=== PATIENT | female | born 1970 | race Caucasian/White ===

== ENCOUNTER 2018-03-07 13:26 | Outpatient (RCR) | payer MEDICAID, SELFPAY ==
--- NOTE | 2018-03-07 14:00 | IE_ITS ---
Date: March 07, 2018 Referring: RENETTA Ward M.D. Diagnosis: Mixed Incontinence P.T. Diagnosis: Pelvic floor dysfunction SUBJECTIVE: History of Present Illness: Patient is a 47 year old female who has a history of urinary incontinence. She reports initially began with just coughing and sneezing, and laughter post of her children. Her leakage can occur with or without activity. She reports at times she doesn't have an urge to go to the bathroom and will get up to get out of bed to get something she forgot and will leak across the floor. She will get up out of a chair at times and leak. She reports leakage with lifting, jumping, running. She does not report a change with her cycle. She had a uro dynamic test by Dr. 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 Her bladder habits including voiding frequency of 5+ per day, 1-2 at night, urge sensation-No. Sometimes no warning before urination occurs. Leakage varies from 2-3 a day to to 2-3 a month. Leakage is primary wet outwear when it does occur. She reports she can delay the need to toilet, however this varies, sometimes not at all, sometimes an hour. She never has trouble initiating a stream, does not strain to pass urine. A large amount is usually passed. Never feels her bladder is still full after urinating. Fluid intake is 4+ glasses a day, 2 of which might be caffeinated, primary drinks water. Does not have triggers that make her feel like she cannot wait to go to the toilet. After starting to urinate, she can partially deflect the urine stream, however this does very. Bowel habits: 1-2 per week. Reports no straining, however history of constipation. She currently is not sexually active at this time. She reports 2 pregnancies, vaginal deliveries, no complications. One in 1991. Declines pain with urination or sexual activity. Has been taught how to complete pelvic floor Kegel contractions via [employer], however has not completed consistently. Comorbidities: ADHD, anxiety, depression, TMJ, neck pain, breast cancer, post radiation treatment. Breast lumpectomy L, tubal ligation, cervical, medial branch blocks. Falls in the last year: __X__ No ____Yes - How many? ____ - (if over 2, balance SM needs to be completed) Reported hospitalizations in the last year - __X__ No ____ Yes - Dates of admission/reason: Medications: See her SHIRA Quality of Life: ____ Excellent __X__ Good __X__ Fair ____ Poor Previous Treatment: She has tried 3 different medications,none of which helped. OBJECTIVE: Posture: Mild forward head, rounded shoulder posture, however otherwise unremarkable. Has equal iliac crest. Observation: (behavior, atrophy, skin color, etc.) Appears in no distress. Is independent with all functional transfers and bed mobility. Gait: Non-antalgic, able to heel and toe walk. ROM: Lumbopelvic forward bend fingertips 1 to floor, extension hypermobile without dysfunction, sidebending to lateral joint line bilaterally, rotation equal and symmetrical. Demonstrates full AA LE ROM without discomfort. Strength: global LE strength grossly 5/5 and painfree. Neuro: Intact to light touch. Special Tests: Via EMG biofeedback was unable to be performed today due to lack of time. Will assess at later session. Treatment: IE: [id number] Patient Education: In the anatomy and physiology of the pelvic floor. We discussed at length bladder irritants, bladder fitness, proper toileting,fluid intake, nutrition to improve constipation. Instructed her in pelvic floor isolation performing functional activity and daily tasks. Recommended when she got out of bed or perform sit to stand transfer to isolate the pelvic floor before standing, also recommended schedule voiding. Discussed at length use of a stool or squatty potty for proper toileting position. Direct treatment time: 60 mins Total treatment time: 60 mins ASSESSMENT: Patient is a 47-year-old woman, referred for PT services with the diagnosis of mixed incontinence. Patient presents with clinical signs and symptoms consistent with this diagnosis, as demonstrated by the following impairment level findings: impaired motor function, muscle performance. Impairments are contributing to the following functional limitations: urinary leakage with daily activities. Patient is assessed as: __x__ Low 24728 ____ Moderate 01509 ____ High 04877 complexity, based on the following: History: (list): X See comorbidities and social history. Examination: (list): X See above for functional limitations and impairments. Presentation: X Stable . Evolving Unstable Decision-Making: X Low complexity Moderate complexity High complexity % Disability based on __X__ Patient requires skilled PT intervention to remediate the above functional limitations to return to: __X__ Premorbid level of function with improved continence _ STG: __6__ weeks. 1: Decrease urinary leakage by 50% or greater. 2: Delay voiding 10-15 minis 3: Increase muscle endurance to 8 seconds 4: Void frequency every 2-3 hours. LTG: __10__ weeks. 1: Perform all ADL work and recreational activities with 75% continence. 2: Independent in self management with strong HEP. PLAN: Patient to be seen 1x every other week with tapering visits as her symptoms improve promoting progression of strong independent self management program with re-assessment of pelvic floor isolation via EMG biofeedback at next session. Treatment to incorporate therapeutic exercise promoting functional stabilization of core musculature, proximal hip and pelvic floor. Progressing her to a strong independent home program with discharge when goals have been met. Thank you for this referral. Please do not hesitate to contact me with any questions or concerns regarding this patient's plan of care.
== END 2018-03-08 23:59 | disposition home or self-care (01) ==
LOC: PT 13:26
PROVIDERS: PCP Nurse Practitioner Family; Referring Provider Nurse Practitioner Gerontology; Visit Provider Nurse Practitioner Gerontology
DX: N36.44 Muscular disorders of urethra (principal); N39.46 Mixed incontinence
CPT/HCPCS: 97161

== ENCOUNTER 2018-03-25 00:33 | Outpatient (CLI) | payer MEDICAID, SELFPAY ==
--- NOTE | 2018-03-25 13:02 | DI.US_ITS ---
SYMPTOM/DIAGNOSIS: F/U TO PREV EXAM PELVIC ULTRASOUND: Comparison is made with 06/18/17. The uterus is retroverted. The uterus measures 6.8 cm. long by 3.4 cm. AP by 5.2 cm. transverse. The endometrial stripe is within normal limits at .4 cm. There is again seen a 1.2 by 1 by 1.2 cm., slightly hypoechoic mass in the uterine fundus most suggestive of a fibroid. This is unchanged compared to the prior examination. The right ovary measures 2.3 by 1.4 by 2.3 cm. There are small follicular cysts. There is normal blood flow. No evidence of torsion is seen. The previously noted cysts have resolved. The left ovary measures 2.6 by 1.4 by 2.3 cm. There is normal blood flow. Small follicular cysts are present. No evidence of torsion is seen. No free pelvic fluid or hydronephrosis is identified. IMPRESSION: Resolution of the right ovarian cystic lesions. Stable uterine fibroid.
== END 2018-03-25 00:53 ==
PROVIDERS: PCP Nurse Practitioner Family; Visit Provider Obstetrics & Gynecology Gynecology
DX: R93.8 Abnormal findings on diagnostic imaging of other specified body structures (principal)
CPT/HCPCS: 76830; 76856

== ENCOUNTER 2018-06-20 09:17 | Emergency (ER) | payer MEDICAID, SELFPAY ==
[2018-06-20 09:21] VITALS: BP 148/88; PULSE 99; RESP 20; TEMP 37.2; O2SAT 99
--- NOTE | 2018-06-20 09:33 | NUR.NOTE ---
patient placed on continous caridac monitor, # 18 right ac Nursing Note:
[2018-06-20] MEDS: LORazepam 1 MG TAB PO (09:59)
--- NOTE | 2018-06-20 09:59 | ED.GENADUL_ITS ---
Discharge Plan Disposition Patient Disposition: HOME Condition: Fair Discharge Details Chief Complaint: Palpitatns Clinical Impression: Anxiety, Atypical chest pain, Abdominal pain, chronic, epigastric Primary Care Provider: Susie Macdonald ED Provider: Jeanne An Home Meds and New Rx's Prescriptions: Continued prazosin 1 mg capsule 1 mg PO HS Qty: 30 RF: 0 bupropion HCl 300 MG tablet extended release 24 hr 450 mg PO DAILY Qty: 90 RF: 3 trazodone 50 MG tablet 50 mg PO HS PRNQty: 90 RF: 3 melatonin 3 mg tablet,disintegrating 9 mg PO HS Qty: 90 RF: 0 bupropion HCl [Wellbutrin XL] 150 mg tablet extended release 24 hr 150 mg PO DAILY Qty: 90 RF: 3 Vyvanse 30 mg Capsule RF: 0 Discharge Instructions Instructions: Chest Pain (ED), Anxiety (ED) Additional Instructions: Encourage hydration. Tylenol as needed for discomfort. Please follow up with primary care, appointment with Dr. Champagne at 7:45 AM Sunday the . Please contact psychiatrist as was advised to schedule follow up as soon as possible. Please leave zio patch in place, follow instructions as advised by respiratory therapy. Keep journal of symptoms to discuss further with primary care provider. If you develop chest pain, shortness of breath or other new/worsening symptoms please seek care urgently once again. Referrals: Susie Macdonald, PHARMACIST IN CHARGE OWNER [Primary Care Provider] - Discharge Data Discharge Date/Time-TO BE ENTERED AT DEPARTURE: 06/20/18 12:21 Medical Decision Making Patient is a 48-year-old female, accompanied by significant other, with multiple complaints. Please see HPI. Difficult to ascertain what exactly brought her to the emergency department today as many of these complaints have been going on for the past several months. She was seen by her primary care physician yesterday which appeared to be primarily for psychiatric reasons. She has had multiple medication changes recently. Is currently on trazodone, prazosin and Wellbutrin. Plan to obtain laboratory evaluation, EKG, chest x-ray. EKG was reviewed by Dr. Stone with no acute abnormality noted. Patient is in normal sinus rhythm with a rate of 103. Chest x-ray reviewed by radiology with no acute abnormality noted. Laboratory evaluation without any significant abnormality. Troponin <0.02. Given the length of symptoms, do not feel that this needs to be repeated. Vaginal exam was performed the patient was endorsing large amount of vaginal discharge is new over the recent months. On exam, I am not able to appreciate any large amount of vaginal discharge. She denies any new partners. Cervix appears unremarkable with no discomfort elicited during exam On further discussion with the patient, much of her frustration seems to stem from my primary care does not listen to me. I consulted with patient's primary care, Rebecca Macdonald NP. Discussed the patient's multitude of complaints. She reports that the patient had alluded to most of these complaints previously. She advised that the patient had only endorsed feelings of palpitations associated with anxiety attacks. Much of the patient's current complaints, including tightness in her neck, tightness in her chest, feelings of palpitations, abdominal discomfort, all of which sound chronic in nature, may be linked to the anxiety that she has been being followed by her primary care for. Rebecca advised that she would be happy to see the patient in the clinic for her multitude of complaints. However, I did discuss this with the patient and she is referring to see somebody else. I was able to obtain an appointment with another provider in the department Discussed patient's largest complaints. At this time, the palpitations seem to be what have her most worried. Patient will be placed on a Zio patch for continued monitoring. I asked that she keep a journal over the next few weeks that she may discuss this with her primary care. I was able to get her an appointment next week in follow-up. Advised she continue with her counseling. She was questioning referral to psychiatric care, something that Rebecca had also discussed with the patient. However, I did offer to set her up with [facility] and she reports that she has another person in mind in the community. She will contact them to schedule follow-up. Encouraged hydration. She may try Tylenol and ibuprofen as needed for discomfort. We discussed new/worsening symptoms and when to seek care urgently once again. All of her questions and concerns were addressed, she is in agreement with this plan. HPI General Mode of arrival: ambulatory . Date/Time Provider Initiated Documentation: 06/20/18 09:19 . Limitations to Documentation: no limitations . Information obtained by: patient and family . HPI Narrative: Patient is a 48 year old female with history of PTSD, OCD, RAJENDRA, depression, ADHD, TMJ dysfunction, invasive ductal carcinoma of breast, migraines. She is accompanied by her . She presents today with a multitude of complaints. States that she had increased migraines recently, is not currently endorsing a headache. States her last headache was Sunday. Endorses throat tightness and swelling which can wax and wane and stones over the past several weeks. Feels that when her throat tightness she has difficulty breathing. Is currently endorsing a sensation of difficulty breathing. Endorses anterior chest tightness but again, it has waxed the past several weeks but is never completely subsided. Reports that the chest tightness and throat tightness seemed to coincide when the increase in severity. States that she has had this recently while driving in the car and has attacks that last a few seconds and then seemed insidiously resolved. These do not seem to be linked with exertion. Patient is also endorsing chronic epigastric pain that she can can wax and wane. Reports she has had EGD for this and has not been able to find the source. Patient self referred to GI, has not discussed this recently with her primary care physician. States that she has had increased vaginal discharge. Reports that she has occasional foul odor. Denies any dyspareunia. Denies any dysuria or change in urinary habits. States she has had constipation and has had issues with this for quite some time Patient also endorses diffuse tingling that has been bothersome for quite some time again, waxing and waning. Feels that she has been out of it. Reports she has difficulty with her speech pattern and has been frequently forgetting what she is saying in the middle of sentences. Denies any recent fevers or chills. No signs of upper respiratory illness. Patient reports that she has had a large amount of stress recently. Has been seen by her primary care recently. Reports she had multiple medication changes. Related Data Home Medications Medication Instructions Recorded Confirmed bupropion HCl 450 mg PO DAILY #90 tab-cap 05/16/17 06/20/18 trazodone 50 mg PO HS PRN #90 tab-cap 06/13/17 06/19/18 melatonin 3 mg disintegrating 9 mg PO HS #90 tab 03/12/18 06/20/18 tablet bupropion HCl XL 150 mg 24 hr 150 mg PO DAILY #90 tab-cap 05/09/18 06/19/18 tablet, extended release prazosin 1 mg capsule 1 mg PO HS #30 tab-cap 06/19/18 06/19/18 Vyvanse 06/20/18 Previous Rx's Medication Instructions Recorded bupropion HCl 450 mg PO DAILY #90 tab-cap 05/16/17 melatonin 3 mg disintegrating 9 mg PO HS #90 tab 03/12/18 tablet bupropion HCl XL 150 mg 24 hr 150 mg PO DAILY #90 tab-cap 05/09/18 tablet, extended release prazosin 1 mg capsule 1 mg PO HS #30 tab-cap 06/19/18 Allergies Allergy/AdvReac Type Severity Reaction Status Date / Time Sulfa (Sulfonamide Allergy Severe SOB,rash Verified 06/20/18 09:26 Antibiotics) aspirin AdvReac Intermediate Rash Verified 06/20/18 09:26 General Stated Complaint: Palpitatns DILCIA: 2 Review of Systems Constitutional Reports as per HPI, Denies chills, Reports fatigue, Denies fever(s), Reports headache(s) and Denies poor appetite Eyes Denies change in vision ENT Reports as per HPI, Denies change in voice, Reports headache(s), Denies hoars eness, Reports throat swelling and Denies tongue swelling Cardiovascular Reports as per HPI, Reports chest pain, Reports chest pain at rest, Reports diaphoresis, Denies syncope, Reports rapid heart rate, Denies pedal edema, Denies leg edema, Reports dyspnea, Denies dyspnea on exertion and Denies orthopnea Respiratory Reports dyspnea, Denies dyspnea on exertion and Denies wheezing Gastrointestinal Reports as per HPI, Denies abdominal pain, Denies diarrhea, Denies nausea and Denies vomiting Musculoskeletal Reports as per HPI and Denies back pain Integumentary/Breasts Reports as per HPI and Denies rash Neurologic Denies syncope and Reports headache(s) Endocrine Reports fatigue Allergic/Immunologic Reports throat swelling, Denies tongue swelling and Denies wheezing PFSH PTSD (post-traumatic stress disorder) (Chronic 06/29/17) Obsessive compulsive disorder (Chronic 06/29/17) Mixed incontinence (Chronic 02/23/14) Invasive ductal carcinoma of breast, stage 1 (Inactive) Insomnia (Chronic 05/24/16) RAJENDRA (generalized anxiety disorder) (Chronic 06/29/17) Depression (Chronic 04/19/16) Cervical neck pain with evidence of disc disease (Chronic) Attention deficit hyperactivity disorder (ADHD) (Chronic 06/29/17) Anxiety (Chronic 04/19/16) Abnormal Pap smear of cervix (Chronic 08/26/14) Abnormal Pap in her teens with Cryo / 2012 Pap + HPV Cervical pain (neck) Past history anemia / NL for years Past history of Migraine without Auro / none for years Past history of depression following breast cancer diagno... Past history of heart murmur with Rx antibiotic/ not for ... Stage 1L breast cancer 2009 Breast, Lumpectomy Colonoscopy - IV Sedation (~2009) Colonoscopy - IV Sedation (04/22/15) EGD (08/17/16) Ligation of fallopian tube cervical medial branch blocks (06/02/15) Social History adopted: No foster care: No number of children: 2 frequency: daily duration: 15-30 minutes/day Smoking/Tobacco Use Status: Former Tobacco Use alcohol intake: former substance use type: does not use seatbelt use: always working smoke detector in home: Yes carbon monox detector in home: Yes firearms in home: No Exam Const General: cooperative, healthy appearing, comfortable, no acute distress and well developed Nutritional Appearance: average body habitus and well nourished Orientation: alert, awake and oriented x3 HENMT Head: normal to inspection Ears: hearing grossly normal bilaterally Mouth: moist mucous membranes Chest Chest: normal inspection of the chest, normal palpation of entire chest wall and no crepitus Resp Effort & Inspection: normal respiratory effort, able to speak in complete sentences and no respiratory distress Auscultation: clear to auscultation bilaterally, no rales, no rhonchi and no wheezes Cardio Rate: regular rate Rhythm: regular rhythm Heart Sounds: S1 normal and S2 normal GI Inspection: normal to inspection, no edema and non-distended Palpation: soft, no hepatosplenomegaly, not firm, no guarding, not rigid and nontender Auscultation: normal bowel sounds General: bimanual renal exam normal bilaterally External Female Exam: external appearance normal, normal appearance of the uret hra, no erythema, no tenderness externally, no external swelling, no ecchymosis and No urethral discharge Speculum Exam - Vagina: normal appearance of the vagina, normal vaginal discharge, vagina not atrophic and No vaginal bleeding Speculum Exam - Cervix: normal appearance of the cervix, No cervical os open and normal vervical discharge Bimanual Exam- Vagina & Uterus: normal bimanual exam and normal vaginal palpation OB/External & Speculum: No cervical os open and No vaginal bleeding Back/Spine/Pelvis Back: no CVA tenderness Thoracic/Lumbar Spine: thoracic and lumbar spine normal to inspection Skin General skin exam: no rashes or lesions noted Trauma: no lacerations or abrasions Neuro General: alert, awake and oriented x3 Cognition: normal cognition Speech: speech normal Gait: normal gait Extrem General: normal to inspection, normal capillary refill, no pedal edema, no calf tenderness and normal gait Psych Appearance: grossly normal and well kempt Mental Status: mental status grossly normal Speech and Movement: speech and movement normal Course Vital Signs Temperature 37.2 C 06/20/18 09:21 Pulse 99 H 06/20/18 09:21 Respiratory Rate 20 06/20/18 09:21 Blood Pressure 148/88 H 06/20/18 09:21 Pulse Oximetry 99 06/20/18 09:21 Temperature 37.2 C 06/20/18 09:21 Temperature Source Skin 06/20/18 09:21 Pulse 99 H 06/20/18 09:21 Respiratory Rate 20 06/20/18 09:21 Respiratory Effort 06/20/18 09:24 Blood Pressure 148/88 H 06/20/18 09:21 Pulse Oximetry 99 06/20/18 09:21 Oxygen Delivery Method Room Air 06/20/18 09:21 Oxygen Flow Rate 0 06/20/18 09:21 Pain Level 0 06/20/18 09:21 Comment 06/20/18 09:21
[2018-06-20] MEDS: Normal Saline 1,000 ML 125 ML IV (10:00)
[2018-06-20 10:05] LABS: Abs Immature Grans 0.01 k/cumm (0.0-0.09); Absolute Basophil Count 0.03 k/cumm (0.0-0.2); Absolute Lymphocyte Count 1.89 k/cumm (1.2-3.4); Absolute Neutrophil Count 3.17 k/cumm (1.2-6.7); Basophils % 0.5; Eosinophils % 1.7; HCT 43.9 % (36.0-46.0); Immature Grans % 0.2; Lymphocytes % 32.6; Mean Corp. HGB Concentration 31.9 g/dL (32.0-36.0); Mean Corpuscular Hemoglobin 29.3 pg (27.0-33.0); Mean Corpuscular Volume 91.8 fL (80-95); Monocytes % 10.3; Neutrophils % 54.7; Platelet Count 279 x1000/uL (130-400); RBC 4.78 m/cumm (4.00-5.20); RBC Distribution Width 13.1 % (11.7-14.6)
[2018-06-20 10:06] VITALS: BP 135/73; RESP 16; O2SAT 100
[2018-06-20 10:15] LABS: PTT Activated 22.1 sec (21.0-31.4); Prothrombin Time 10.2 sec (9.3-10.8)
[2018-06-20 10:21] LABS: ALT 23 U/L (12-78); AST 15 U/L (15-37); Albumin 3.8 g/dL (3.4-5.0); Alkaline Phosphatase 74 U/L (46-116); Anion Gap 8.7 mmol/L (3-11); BUN 13 mg/dL (7-18); Bilirubin, Total 0.3 mg/dL (0.2-1.0); CO2 27.3 mmol/L (21.0-32.0); Calcium 8.8 mg/dL (8.5-10.1); Chloride 102 mmol/L (98-107); Estimated GFR 59.43 (mL/min/1.73m2); Glucose 100 mg/dL (70-100); Magnesium 1.9 mg/dL (1.8-2.4); Potassium 3.8 mmol/L (3.5-5.1); Sodium 138 mmol/L (136-145); TSH (W/Ref FT4) 2.48 uIU/mL (0.358-3.74); Total Protein 7.2 g/dL (6.4-8.2)
[2018-06-20 10:39] LABS: Troponin I < 0.02 ng/mL (0.00-0.06)
--- NOTE | 2018-06-20 10:47 | DI.RAD_ITS ---
SYMPTOM/DIAGNOSIS: CP, SOB CHEST: PA and lateral. No priors for comparison. The heart is normal in size. The lungs are clear. The mediastinal structures and pleura appear intact. CONCLUSION: Normal chest.
--- NOTE | 2018-06-20 11:09 | NUR.NOTE ---
Nursing Note:Pt over to xray via w/c. urine specimen sent to lab, HCG POC negative
[2018-06-20 11:24] LABS: *AMPHETAMINES SCREEN URINE Negative (Negative); *BARBITURATES SCREEN URINE Negative (Negative); *BENZODIAZEPINES SCREEN URINE Negative (Negative); Cannabinoids THC Negative (Negative); Cocaine Screen,Urine Negative (Negative); METHADONE URINE SCREEN Negative (Negative); OPIATES URINE SCREEN Negative (Negative)
[2018-06-20 11:27] LABS: Bilirubin Negative (Negative); Blood Negative (Negative); Clarity Clear; Glucose Negative (Negative); Ketones Negative (Negative); Leukocyte Esterase Negative (Negative); Nitrite Negative (Negative); Specific Gravity 1.015 (1.005-1.025); Urobilinogen 0.2 EU/dL (Up TO 0.2); pH 8.5 (5-8)
[2018-06-20 11:29] LABS: Tricyclic Antidepressants Negative (Negative)
--- NOTE | 2018-06-20 11:41 | NUR.NOTE ---
Nursing Note: Assisted with pelvic exam with Jeanne RUBIN. Patient tolerated well.
[2018-06-20 12:06] VITALS: BP 119/66; PULSE 78; RESP 18; O2SAT 97
[2018-06-20 12:51] VITALS: BP 106/61; PULSE 78; RESP 16; TEMP 37.1; O2SAT 99
--- NOTE | 2018-07-12 10:47 | ZIOP_ITS ---
DATE OF DICTATION: July 12, 2018 INDICATION: Palpitations. ANALYSIS TIME: 13 days and 1 hour Predominant underlying rhythm is sinus rhythm. Average heart rate 94 bpm. Minimum heart rate 67 bpm. Maximum heart rate 152 bpm. Rare isolated ventricular ectopy. No non-sustained VT. Rare isolated atrial ectopy. No SVT or atrial fibrillation. No significant pauses or bradyarrhythmias. Three diary entries with symptoms including fluttering/racing/pounding/throat tightness and shoulder discomfort all correspond to sinus rhythm. 25 patient-triggered events predominantly correspond to sinus rhythm with one corresponding to sinus rhythm with PVC's.
== END 2018-06-20 12:21 | disposition home or self-care (01) ==
PROVIDERS: Emergency Provider Physician Assistant; PCP Nurse Practitioner Family
DX: F41.8 Other specified anxiety disorders (principal); R07.89 Other chest pain; R10.13 Epigastric pain
CPT/HCPCS: 36415; 80053; 80307; 81025; 93005; 93225; 99285; 71046; 81003; 83735; 84443; 84484; 85025; 85610; 85730; 93010

== ENCOUNTER 2018-06-27 16:01 | Outpatient (CLI) | payer MEDICAID, SELFPAY ==
--- NOTE | 2018-06-27 15:00 | DI.CT_ITS ---
SYMPTOM/DIAGNOSIS: CP, SOB, R07.9, R06.02 CTA CHEST: CT angiography was performed with multi slice acquisition and multi planar and 3D reconstruction. This study was carried out with an intravenous injection of 97.1 cc Omnipaque 350. The pulmonary arteries are normal. There is no evidence of PE. The evaluation of the proximal ascending thoracic aorta is somewhat limited due to patient motion. No aneurysm is seen. Note is made of a 4 mm right pulmonary nodule. There are scattered areas of atelectasis and/or scarring. Also identified is a nonspecific 6 mm pulmonary nodule. There is no evidence of a pleural effusion or pneumothorax. There is no pericardial effusion. The heart is not enlarged. There is gas in the esophagus which could be seen with reflux. The common bile duct is mildly dilated at 7.8 mm This finding should be correlated with appropriate laboratory tests. There is some prominence of the left adrenal gland. No discrete adrenal mass is apparent. There is no evidence of mediastinal adenopathy. The bony structures are unremarkable save for mild DJD. Surgical clips are noted in the left axilla. SUMMARY: No evidence of PE. The common duct caliber of 7.8 mm is recorded and is somewhat dilated (top limits of normal is 6 to 7 mm). Correlation with the patient's clinical status and appropriate laboratory tests. If there is further clinical question in this regard then further assessment with ultrasound and/or a radionuclide hepatobiliary scan could be of value. Nonspecific small pulmonary nodules are demonstrated. Comparison of this examination with previous images is recommended. Incidentally noted: I do not see a previous chest CT for this patient. Repeat chest CT in one year. If there is any evidence of an intra-abdominal or pelvic malignancy in this patient then further work up with abdominal CT.
[2018-06-27] MEDS: Omnipaque 350 MG/ML 100 ML BTL IJ (16:14)
--- NOTE | 2018-06-27 16:43 | DI.VRAD_ITS ---
EXAM: CT Angiography Chest With Contrast EXAM DATE/TIME: 06/27/2018 2:56 PM CLINICAL HISTORY: 48 years old, female; Pain; Chest pain; On breathing; Additional info: SOB, HX breast cancer TECHNIQUE: Axial computed tomographic angiography images of the chest with intravenous contrast using CT angiography protocol. Coronal and sagittal reformatted images were created and reviewed. MIP reconstructed images were created and reviewed. COMPARISON: CR XR CHEST 2V PA LATERAL 06/20/2018 11:08 AM FINDINGS: Pulmonary arteries: No pulmonary embolism identified. Aorta: Evaluation of the proximal ascending thoracic aorta is limited secondary to motion. No aneurysm identified. Lungs: Series 4 image 51 demonstrates a nonspecific 4 mm right pulmonary nodule. There are scattered areas of atelectasis or scarring. Series 4 image 17 demonstrates a nonspecific 6 mm right pulmonary nodule. Pleural space: No pleural effusion. No pneumothorax. Heart: No pericardial effusion. Mediastinum: Gas in the esophagus which can be seen with reflux. Gallbladder and bile ducts: The common bile duct is measuring mildly dilated at 7.8 mm. Correlation with lab values suggested. Adrenals: Bulky appearance to the left adrenal gland. Lymph nodes: No mediastinal lymph node enlargement. Bones/joints: Mild skeletal degenerative changes. Soft tissues: Surgical clips are noted in the left axilla.. IMPRESSION: 1. No pulmonary embolism identified. 2. The common bile duct is measuring mildly dilated at 7.8 mm (normal is less than 6 mm). Correlation with lab values suggested. An obstructive process could be a source of the patient's pain. If indicated, ultrasound could be considered. 3. Nonspecific subcentimeter pulmonary nodules. Comparison with older imaging studies, if available, would be beneficial. Followup suggested. Given the patient's history of underlying malignancy, disease involvement is not excluded. Dictated and Authenticated by: Hansa Clark MD. Ordering:FLY Dunn MD
== END 2018-06-27 16:21 ==
PROVIDERS: PCP Nurse Practitioner Family; Visit Provider Nurse Practitioner
DX: R07.9 Chest pain, unspecified (principal); R06.02 Shortness of breath; R91.1 Solitary pulmonary nodule; K21.9 Gastro-esophageal reflux disease without esophagitis; K83.8 Other specified diseases of biliary tract
CPT/HCPCS: 71275; J3490

== ENCOUNTER 2018-07-11 01:20 | Outpatient (CLI) | payer MEDICAID, SELFPAY ==
--- NOTE | 2018-07-11 10:40 | MERGE_ITS ---
*[facility]* *[facility]* [address] [place] [address] Date of study: 07/11/2018 Transthoracic Echocardiography M-mode, complete 2D, complete spectral Doppler, and color Doppler *STUDY CONCLUSIONS* Summary: 1. Left ventricle: The cavity size was normal. Systolic function was normal. The estimated ejection fraction was 60-65%. Diastolic parameters were normal. There was no evidence of elevated ventricular filling pressure by Doppler parameters. 2. Mitral valve: There was mild regurgitation. 3. Right ventricle: The cavity size was normal. Wall thickness was normal. Systolic function was normal. 4. Atrial septum: No defect or patent foramen ovale was identified. 5. Pulmonary arteries: Pulmonary systolic pressure was in the range of 20mm Hg to 30mm Hg. 6. Inferior vena cava: The vessel was patent and normal in size. The respirophasic diameter changes were in the normal range (greater than or equal to 50%), consistent with normal central venous pressure. *PATIENT PRESENTATION* Height: 165.1cm ((65in) ) S/D Pressure: 126 / 67 Weight: 63.5kg ((139.7lb) ) BSA: 1.71m^2 Test start time: 10:50 AM. Test stop time: 11:50 AM. PERFORMING [facility] TRAFFIC SAFETY ADMINISTRATOR RT Simona (R)(CT), RDCS CONSULTING Susie Macdonald Joyce A REFERRING Vitale, Joyce A *PROCEDURE DATA* Procedure information: The patient was identified by two identifiers. This study was interpreted by [facility]. Pertinent images and digital data are archived for permanent storage and are available for subsequent review. No prior study was available for comparison. Study status: Routine. Transthoracic echocardiography. M-mode, complete 2D, complete spectral Doppler, and color Doppler. A Transthoracic Echocardiogram was performed. Scanning was performed from the parasternal, apical, subcostal, and suprasternal notch acoustic windows. Images were obtained using an [id number] cardiac ultrasound machine. Image quality was good. Study completion: The patient tolerated the procedure well. History: PMH: Chest pain, SOB. Family hx of ischemic heart disease. *CARDIAC ANATOMY* Left ventricle: The cavity size was normal. Systolic function was normal. The estimated ejection fraction was 60-65%. The tissue Doppler parameters were normal. Diastolic parameters were normal. There was no evidence of elevated ventricular filling pressure by Doppler parameters. Aortic valve: Trileaflet. Doppler: There was no stenosis. There was no regurgitation. VTI ratio of LVOT to aortic valve: 0.89. Valve area (VTI): 2.7cm^2. Indexed valve area (VTI): 1.6cm^2/m^2. Peak velocity ratio of LVOT to aortic valve: 0.82. Valve area (Vmax): 2.5cm^2. Indexed valve area (Vmax): 1.5cm^2/m^2. Mean velocity ratio of LVOT to aortic valve: 0.8. Valve area (Vmean): 2.5cm^2. Indexed valve area (Vmean): 1.4cm^2/m^2. Mean gradient (S): 3.5mm Hg. Peak gradient (S): 5.3mm Hg. Aorta: Aortic root: The aortic root was normal in size. Ascending aorta: The ascending aorta was normal in size. Mitral valve: Doppler: There was no evidence for stenosis. There was mild regurgitation. Valve area by pressure half-time: 3.4cm^2. Indexed valve area by pressure half-time: 2cm^2/m^2. Left atrium: The atrium was normal in size. Atrial septum: No defect or patent foramen ovale was identified. Right ventricle: The cavity size was normal. Wall thickness was normal. Systolic function was normal. Pulmonic valve: Doppler: There was no evidence for stenosis. There was trivial regurgitation. Peak gradient (S): 3.8mm Hg. Tricuspid valve: Doppler: There was mild regurgitation. Pulmonary artery: Poorly visualized. Pulmonary systolic pressure was in the range of 20mm Hg to 30mm Hg. Right atrium: The atrium was normal in size. Pericardium: There was no pericardial effusion. Systemic veins: Inferior vena cava: Well visualized. The vessel was patent and normal in size. The respirophasic diameter changes were in the normal range (greater than or equal to 50%), consistent with normal central venous pressure. Baseline ECG: Normal sinus rhythm. Measurements Left ventricle Value Reference LV ID, ED, PLAX 4.8 cm 3.5 - 6.0 LV ID, ES, PLAX 3.2 cm 2.1 - 4.0 LV PW thickness, ED, PLAX 0.9 cm LV end-diastolic volume, 1-p A2C 83 ml LV ejection fraction, 1-p A2C 60 % LV end-diastolic volume, 1-p A4C 72 ml LV ejection fraction, 1-p A4C 59 % LV e', lateral 0.138 m/sec LV E/e', lateral 4 LV e', medial 0.085 m/sec LV E/e', medial 7 LV e', average 0.112 m/sec LV E/e', average 5 Ventricular septum Value Reference IVS thickness, ED, PLAX 0.8 cm LVOT Value Reference LVOT ID, A-P 2.0 cm LVOT area 3.1 cm^2 LVOT peak velocity, S 0.94 m/sec LVOT mean velocity, S 0.73 m/sec LVOT VTI, S 21.3 cm LVOT peak gradient, S 3.6 mm Hg LVOT mean gradient, S 2.3 mm Hg Stroke volume (SV), LVOT DP 66 ml Stroke index (SV/bsa), LVOT DP 38 ml/m^2 Aortic valve Value Reference Aortic valve peak velocity, S 1.1 m/sec Aortic valve mean velocity, S 0.91 m/sec Aortic valve VTI, S 24.0 cm Aortic mean gradient, S 3.5 mm Hg Aortic peak gradient, S 5.3 mm Hg VTI ratio, LVOT/AV 0.89 Aortic valve area, VTI 2.7 cm^2 Velocity ratio, peak, LVOT/AV 0.82 Aortic valve area, peak velocity 2.5 cm^2 Velocity ratio, mean, LVOT/AV 0.8 Aortic valve area, mean velocity 2.5 cm^2 Aortic valve area/bsa, mean velocity 1.4 cm^2/m^2 Aorta Value Reference Aortic root ID, ED 2.7 cm Ascending aorta ID, A-P, S 2.6 cm Left atrium Value Reference LA ID, A-P, ES 2.7 cm LA ID/bsa, A-P 1.6 cm/m^2 <=2.2 LA area, ES, A4C 15.2 cm^2 8.8 - 23.4 LA area, ES, A2C 17 cm^2 LA volume/bsa, ES, 1-p A4C 24 ml/m^2 LA volume, ES, 2-p 42 ml LA volume/bsa, ES, 2-p 24 ml/m^2 LA/aortic root ratio 1.02 Mitral valve Value Reference Mitral E-wave peak velocity 0.57 m/sec Mitral A-wave peak velocity 0.47 m/sec Mitral deceleration time 225 ms 150 - 230 Mitral pressure half-time 65 ms Mitral E/A ratio, peak 1.22 Mitral valve area, PHT, DP 3.4 cm^2 Pulmonary veins Value Reference Pulmonary vein peak velocity, S 0.59 m/sec Pulmonary vein peak velocity, D 0.34 m/sec Pulmonary vein velocity ratio, peak, 1.74 S/D Tricuspid valve Value Reference Tricuspid regurg peak velocity 2.3 m/sec Tricuspid peak RV-RA gradient 21.7 mm Hg Right atrium Value Reference RA area, ES, A4C 11.4 cm^2 8.3 - 19.5 Pulmonic valve Value Reference Pulmonic peak gradient, S 3.8 mm Hg Legend: (L) and (H) alina values outside specified reference range. I have personally reviewed the images and have reviewed and edited the reported findings. Electronically signed by Jm Macdonald MD 07/11/2018 13:50
== END 2018-07-11 01:40 ==
PROVIDERS: PCP Nurse Practitioner Family; Visit Provider Nurse Practitioner
DX: R07.9 Chest pain, unspecified (principal); R06.02 Shortness of breath; I34.0 Nonrheumatic mitral (valve) insufficiency; Z82.49 Family history of ischemic heart disease and other diseases of the circulatory system
CPT/HCPCS: 93306

== ENCOUNTER 2018-07-17 00:27 | Outpatient (CLI) | payer MEDICAID, SELFPAY ==
--- NOTE | 2018-07-17 09:45 | DI.US_ITS ---
SYMPTOM/DIAGNOSIS: THROAT SWELLING, R22.1, INTERMITTENT SENSATION OF THROAT FULLNESS, ? MASS OR NODULE, H/O BREAST CA, COMMON BILE DUCT DILATATION, K83.8, ? MASS OR STRICTURE ABDOMEN ULTRASOUND: Routine examination was performed. The abdominal aorta and IVC are unremarkable. The liver is unremarkable. No stones, sludge, gallbladder wall thickening or pericholecystic fluid is seen. The common duct is within normal limits. The tail of the pancreas could not be visualized but the remainder of the pancreas is unremarkable. The spleen and kidneys have a normal appearance. IMPRESSION: No acute abnormality. No evidence of a hepatic mass, gallstone or biliary ductal dilatation. NECK ULTRASOUND: Routine examination was performed. The right lobe of the thyroid gland measures 4.7 by 0.9 by 1.1 cm. The left lobe measures 4.1 by 0.9 by 1 cm. The isthmus is within normal limits. The thyroid gland is normal in echogenicity. No thyroid mass is seen sonographically. Sonographic evaluation of the right and left neck were also performed. No suspicious cystic or solid masses are identified. IMPRESSION: Normal sonographic appearance of the neck and thyroid gland. If there is continued concern, a CT scan with contrast of the neck may be considered for further evaluation.
== END 2018-07-17 00:47 ==
PROVIDERS: PCP Nurse Practitioner Family; Visit Provider Nurse Practitioner Family
DX: R22.1 Localized swelling, mass and lump, neck (principal); K83.8 Other specified diseases of biliary tract; Z85.3 Personal history of malignant neoplasm of breast
CPT/HCPCS: 76536; 76700

== ENCOUNTER 2018-07-18 00:10 | Outpatient (CLI) | payer MEDICAID, SELFPAY ==
--- NOTE | 2018-07-18 08:30 | ETT_ITS ---
*[facility]* *[facility]* [address] [place] [address] Stress Electrocardiography Filippo protocol Date of study: 07/18/2018 *PATIENT PRESENTATION* Height: 165.1cm (65in) Blood Pressure: Weight: 63.2kg (139lb) BSA: 1.71m^2 Referring physician: Mona Varghese Ordering physician: Mona Varghese Impressions: Normal study after maximal exercise. Summary: 1. Stress: The target heart rate was achieved. Indication: R07.9. History: REASON FOR TESTING: PATIENT HAS HAD INTERMITTENT SHARP CHEST PAINS OVER THE LAST MONTH. ALSO REPORTS PAIN BETWEEN SHOULDER BLADES AND NECK TIGHTNESS. TODAY SHE REPORTS PAIN 5/10 BETWEEN HER SHOULDER BLADES RADIATING TO RIGHT SHOULDER, BUT DENIES CHEST PAIN. PAST MEDICAL HISTORY: PAST HISTORY OF HEART MURMUR WITH RX ANTIBIOTICS, ANXIETY, DEPRESSION, PTSD, RAJENDRA, ADHD, OBSESSIVE COMPULSIVE DISORDER. FAMILY HISTORY: MOTHER-HEART ATTACK, FATHER-HEART ATTACK, CHF AND ATRIAL FIBRILLATION. SMOKING STATUS: 10 YEAR 1/2 PPD. QUIT MANY YEARS AGO. EXERCISE ROUTINE: DAILY ADL'S Risk factors: Family history of coronary artery disease. Cholesterol: 128mg/dl. HDL: 51mg/dl. LDL: 61mg/dl. Triglycerides: 108mg/dl. ALLERGIES: ASPIRIN AND SULFA. MEDICATIONS: TRAZODONE 50 MG HS PRN, PRAZOSIN 1 MG HS, MELATONIN 9 MG HS, BUPROPION HCI XL 450 MG DAILY. Protocol: Filippo protocol. Baseline ECG: SINUS RHYTHM. HEART RATE 77. Stress protocol: + +---+ + !Stage !HR !BP (mmHg) ! + +---+ + !Baseline supine !77 !110/72 (85) ! + +---+ + !Baseline standing !100!110/74 (86) ! + +---+ + !Stage I; 1.7mph, 10degrees; 3 min !124!120/76 (91) ! + +---+ + !Stage II; 2.5mph, 12degrees; 3 min !146!148/76 (100)! + +---+ + !Stage III; 3.4mph, 14degrees; 3 min!164!178/74 (109)! + +---+ + !Recovery; 1 min !162!180/78 (112)! + +---+ + !Recovery; 3 min !115!168/70 (103)! + +---+ + !Recovery; 6 min !117!138/70 (93) ! + +---+ + !Recovery; 9 min !113!122/70 (87) ! + +---+ + !Recovery; 12 min !108!118/62 (81) ! + +---+ + * Stress results: STRESS TEST ENDED IN 7 MINUTES 44 SECONDS DUE TO FATIGUE. NORMAL HEART RATE AND BLOOD PRESSURE TO EXERCISE. MAX HR = 169 % OF TARGET = 97 RARE PVC'S APPROXIMATE MET'S ACHIEVED = 7.74 CHEST PAIN MID STERNAL 4 OUT OF 10 ACHING AND SHARP REPORTED AT 6 MINUTES RECOVERY TIME. CHEST PAIN SUBSIDED BY [address] MIN[address] RECOVERY. NO SIGNIFICANT ST SEGMENT CHANGES. FUNCTIONAL CAPACITY: AVERAGE CAPACITY Maximal heart rate during stress was 169bpm (98% of maximal predicted heart rate). The maximal predicted heart rate was 173bpm. The target heart rate was achieved. The rate-pressure product for the peak heart rate and blood pressure was 66871fl Hg/min. Study data: Colt Arroyo MD supervised and was readily available during the procedure. This study was interpreted by [facility]. Study status: Routine. Consent: The risks, benefits, and alternatives to the procedure were explained to the patient and informed consent was obtained. Procedure: Initial setup. A baseline ECG was recorded. Surface ECG leads and manual cuff blood pressure measurements were monitored. Heart sounds: Normal. Lung sounds: Normal. Treadmill exercise testing was performed using the Filippo protocol. Study completion: The patient tolerated the procedure well and was discharged from the lab. Discharge: The patient left the laboratory in stable condition. Birthdate: Patient birthdate: 1970. Sex: Gender: female. Study date: Study date: 07/18/2018. Study time: 08:30 AM. Signature Documentation: The Stress ECG portion of this study was interpreted by Colt Arroyo MD. Electronically signed by Colt Arroyo 07/18/2018 12:02
== END 2018-07-18 00:30 ==
PROVIDERS: PCP Nurse Practitioner Family; Visit Provider Nurse Practitioner
DX: R07.9 Chest pain, unspecified (principal); R06.02 Shortness of breath; R01.1 Cardiac murmur, unspecified; F41.8 Other specified anxiety disorders; Z82.49 Family history of ischemic heart disease and other diseases of the circulatory system
CPT/HCPCS: 93017

== ENCOUNTER 2018-10-16 15:55 | Outpatient (REF) | payer MEDICAID, SELFPAY ==
[2018-10-16 20:04] LABS: Abs Immature Grans 0.01 k/cumm (0.0-0.09); Absolute Basophil Count 0.05 k/cumm (0.0-0.2); Absolute Eosinophil Count 0.05 k/cumm (0.0-0.7); Absolute Lymphocyte Count 1.78 k/cumm (1.2-3.4); Absolute Monocyte Count 0.54 k/cumm (0.11-0.7); Absolute Neutrophil Count 2.72 k/cumm (1.2-6.7); HCT 40.8 % (36.0-46.0); HGB 12.9 g/dL (12.0-15.5); Immature Grans % 0.2; Lymphocytes % 34.6; Mean Corp. HGB Concentration 31.6 g/dL (32.0-36.0); Mean Corpuscular Hemoglobin 28.8 pg (27.0-33.0); Mean Corpuscular Volume 91.1 fL (80-95); Mean Platelet Volume 10.5 fL (8.0-11.0); Monocytes % 10.5; Neutrophils % 52.7; Platelet Count 229 x1000/uL (130-400); RBC 4.48 m/cumm (4.00-5.20); RBC Distribution Width 12.9 % (11.7-14.6); White Blood Cell Count 5.15 k/cumm (4.4-10.8)
[2018-10-16 20:07] LABS: ALT 24 U/L (12-78); AST 17 U/L (15-37); Albumin 3.8 g/dL (3.4-5.0); Alkaline Phosphatase 76 U/L (46-116); BUN 12 mg/dL (7-18); Bilirubin, Total 0.2 mg/dL (0.2-1.0); C-Reactive Protein 0.13 mg/dL (0.0-0.3); CREATININE 1.06 mg/dL (0.55-1.02); Calcium 8.7 mg/dL (8.5-10.1); Chloride 104 mmol/L (98-107); Estimated GFR 55.57 (mL/min/1.73m2); Glucose 109 mg/dL (70-100); Potassium 4.1 mmol/L (3.5-5.1); Sodium 141 mmol/L (136-145); Total Protein 6.4 g/dL (6.4-8.2)
[2018-10-16 21:30] LABS: ESR 8 MM/HR (0-20)
[2018-10-18 11:35] LABS: Rheumatoid Factor <8 IU/mL (<12.5)
[2018-10-18 12:12] LABS: ANA Interpretation Negative (NEGAT)
== END 2018-10-16 16:15 ==
LOC: NCHCN 15:55
PROVIDERS: Visit Provider Nurse Practitioner Family
DX: M79.7 Fibromyalgia (principal); K83.8 Other specified diseases of biliary tract; Z85.3 Personal history of malignant neoplasm of breast
CPT/HCPCS: 80053; 85652; 85025; 86038; 86140; 86431

== ENCOUNTER 2019-02-11 00:57 | Outpatient (CLI) | payer MEDICAID, SELFPAY ==
--- NOTE | 2019-02-11 11:15 | DI.CT_ITS ---
SYMPTOMS/DIAGNOSIS: PULMONARY NODULE, R91.1, HX BREAST CANCER, Z85.[address]: Comparison is made with chest CT of 43Cos02 which showed two tiny right upper lobe nodules. A routine post contrast exam was performed. There is a stable tiny area of nodularity along the major fissure between the right lower and middle lobe which is a typical location of an intrapulmonary lymph node. It is unchanged when compared with the previous exam. There is minimal pleural scarring near both apices. No additional pulmonary nodules are seen. There is no evidence of adenopathy, infiltrate, pleural or pericardial effusion. Post surgical changes are seen. The visualized portions of the upper abdominal organs are unremarkable. No lytic or blastic bony lesions are seen. IMPRESSION: Previously questioned right upper lobe nodule is not seen. There is a stable smoothly marginated area of nodularity seen at the right major fissure which may represent an intrapulmonary lymph node. This appears stable.
[2019-02-11] MEDS: Omnipaque 350 MG/ML 100 ML BTL IJ (11:28)
== END 2019-02-11 01:17 ==
PROVIDERS: PCP Nurse Practitioner Family; Visit Provider Family Medicine
DX: R91.1 Solitary pulmonary nodule (principal); R59.0 Localized enlarged lymph nodes; Z85.3 Personal history of malignant neoplasm of breast
CPT/HCPCS: 71260; J3490

== ENCOUNTER 2019-02-19 03:52 | Outpatient (CLI) | payer MEDICAID, SELFPAY ==
--- NOTE | 2019-02-19 16:00 | DI.RAD_ITS ---
SYMPTOMS/DIAGNOSIS: BILATERAL SHOULDER JOINT PAIN, M25.511, M25.512 LEFT SHOULDER: There is some mild spurring at the AC joint. The humeral head is normally positioned. There is mild spurring at the anterior glenoid. No tendon or joint space calcifications are seen. Surgical clips are seen in the lower lateral chest. IMPRESSION: Mild degenerative changes. RIGHT SHOULDER: There is mild spurring at the AC joint and glenoid. The humeral head is normally positioned. No tendon or joint space calcifications are seen. IMPRESSION: Mild degenerative changes.
--- NOTE | 2019-02-19 16:32 | DI.MAMMO_ITS ---
SYMPTOM/DIAGNOSIS: RT BREAST PAIN N64.4 MAMMOGRAM: 02/19 Mammograms were interpreted according to the usual protocol including computer analysis with CAD system, tomosynthesis and C view imaging. The patient has reportedly had a prior left lumpectomy. No mass or clumped microcalcification identified in either breast. The current examination is compared with previous examinations including May 2018 and thee has been no gross interval change in appearance in comparison with the previous studies. CONCLUSION: No specific evidence of malignancy at this time. Routine screening examinations are suggested at yearly intervals due to the history of breast carcinoma. Category 1, breast density category B. MQSA ASSESSMENT OF FINDINGS: Negative. Category 1. Patient will receive a letter notifying them of these results. BI-RADS category B. There are scattered areas of fibroglandular density.
== END 2019-02-19 04:12 ==
PROVIDERS: PCP Nurse Practitioner Family; Visit Provider Nurse Practitioner Family
DX: M25.511 Pain in right shoulder (principal); M25.512 Pain in left shoulder; N64.4 Mastodynia; Z85.3 Personal history of malignant neoplasm of breast; Z98.890 Other specified postprocedural states
CPT/HCPCS: 77062; 77066; 73030; G0279

== ENCOUNTER 2019-02-26 14:52 | Emergency (ER) | payer MEDICAID, SELFPAY ==
[2019-02-26] VITALS (43 sets, daily range): BP systolic 115–151; BP diastolic 59–80; PULSE 82–110; RESP 11–34; TEMP 36.6; O2SAT 97–100
--- NOTE | 2019-02-26 15:21 | DI.RAD_ITS ---
SYMPTOMS/DIAGNOSIS: CHEST PAIN PA AND LATERAL CHEST: There are vascular clips in the left axilla. The heart is not enlarged. The lungs are clear. No pleural effusions seen. CONCLUSION: No evidence of acute disease.
[2019-02-26] MEDS: LORazepam 2 MG/ML VIAL 0.5 MG IVP (15:36)
[2019-02-26] MEDS: Normal Saline 1,000 ML 1000 ML IV (15:36)
[2019-02-26 15:40] LABS: Abs Immature Grans 0.02 k/cumm (0.0-0.09); Absolute Basophil Count 0.05 k/cumm (0.0-0.2); Absolute Eosinophil Count 0.13 k/cumm (0.0-0.7); Absolute Lymphocyte Count 2.68 k/cumm (1.2-3.4); Absolute Monocyte Count 0.71 k/cumm (0.11-0.7); Absolute Neutrophil Count 4.21 k/cumm (1.2-6.7); Basophils % 0.6; Eosinophils % 1.7; HCT 44.3 % (36.0-46.0); HGB 14.2 g/dL (12.0-15.5); Immature Grans % 0.3; Lymphocytes % 34.4; Mean Corp. HGB Concentration 32.1 g/dL (32.0-36.0); Mean Corpuscular Volume 90.4 fL (80-95); Monocytes % 9.1; Neutrophils % 53.9; Platelet Count 367 x1000/uL (130-400); RBC Distribution Width 13.3 % (11.7-14.6)
--- NOTE | 2019-02-26 15:47 | ED.GENADUL_ITS ---
Discharge Plan Disposition Patient Disposition: HOME Discharge Details Chief Complaint: Chest Pain Clinical Impression: Chest pain, Anxiety Primary Care Provider: Kale Wade ED Provider: Con Tovar Home Meds and New Rx's Prescriptions: Continued melatonin 3 mg tablet,disintegrating 9 mg PO HS Qty: 90 RF: 0 bupropion HCl [Wellbutrin XL] 150 mg tablet extended release 24 hr 150 mg PO DAILY Qty: 90 RF: 3 trazodone 50 mg Tablet 50 mg PO .HS RF: 0 Discharge Instructions Instructions: Chest Pain (ED), Anxiety (ED) Additional Instructions: You should have a stress test performed as soon as possible. Please schedule. Please call your doctor tomorrow to arrange timely follow-up. Rest over the next few days. No exertional activities until cleared to do so by your doctor. Return to the ER for any worsening or new concerning symptoms. Referrals: Kale Wade NP [Primary Care Provider] - Discharge Data Discharge Date/Time-TO BE ENTERED AT DEPARTURE: 02/26/19 19:45 Medical Decision Making <Malcolm Alexander NP - Last Filed: 02/27/19 08:43> Patient presenting to the emerge complete about complaint of chest pain. Patient states this started 1 hour prior to arrival with radiation of discomfort into right side of chest and left jaw. Patient states over the past couple days she has noted to be tachycardic on her home monitor with some readings in the 120s. She does state that these have been occurring after stressful events with significant other along with work. Patient denies any fever chills difficulty breathing, nausea vomiting. Patient does state that she has also been noting some heartburn over the past week. Physical exam is unremarkable and shows no reproducible discomfort with palpation of the epigastrium or chest wall, regular cardiac and respiratory exam, no JVD, otherwise nondiagnostic exam. Patient does appear slightly anxious. Labs, chest x-ray, UA and d-dimer were ordered. Pending results patient given Ativan for anxiety along with Zantac. Initially ordered patient aspirin but patient then informed us of aspirin allergy. EKG reviewed with Dr. Vandana Cullen attending physician. Rate of 101, sinus tachycardia, poor R wave progression, nonspecific, no STEMI. <Con Toavr MD - Last Filed: 02/26/19 22:41> Care signed out by LIDIA Alexander with plan to follow-up on labs, imaging, reassess patient. Please see his documentation regarding initial ED presentation and course. Initial troponin and d-dimer pending at time of signout. Labs reviewed and nondiagnostic. D-dimer negative. Patient is low risk by Wells criteria and does not need further diagnostic testing to rule out pulmonary embolism given negative d-dimer. Initial troponin negative. Second delta troponin was sent and also negative unchanged from prior. Second EKG was performed and reviewed and interpreted by me: Normal sinus rhythm, 94 bpm, normal axis, poor R wave progression, nonspecific, no STEMI, nondiagnostic. ECG unchanged from prior EKG other than tachycardia resolved. Patient was reassessed and notes symptoms have improved. She feels likely secondary to severe anxiety exacerbation. Patient notes chronic tachycardia. Plan for outpatient stress test and outpatient follow-up. Patient understands importance of timely follow-up. Disposition decision was made weighing the risks and benefits of hospitalization versus outpatient treatment, the risk for further decompensation, and the patient's wishes. The patient was stable and requested discharge. Prior to discharge, my usual and customary return precautions were reviewed with the patient - this included follow-up instructions and reason to return to the emergency department if condition worsens, does not improve as expected, or other new concerns arise. HPI <Malcolm Alexander NP - Last Filed: 02/27/19 08:43> General Mode of arrival: ambulatory . Date/Time Provider Initiated Documentation: 02/26/19 15:05 . Limitations to Documentation: no limitations . Information obtained by: patient and RN notes reviewed . History of Present Illness 48 year old F presents to the emergency department with the chief complaint of Chest pain, described as moderate, with intensity rated at 7. Quality is described as aching, and is localized to the chest and left. Patient reports radiation to (To right side of chest and left jaw). Patient started experiencing this hour(s) (1) and it has been constant. Other factors that worsen symptoms (Possible stress and anxiety) . Patient did receive the following treatments prior to arrival, none Related Data Home Medications Medication Instructions Recorded Confirmed melatonin 3 mg disintegrating 9 mg PO HS #90 tab 03/12/18 02/26/19 tablet bupropion HCl 150 mg 24 hr tablet, 150 mg PO DAILY #90 tab-cap 11/01/18 08/21/19 extended release trazodone 50 mg PO .HS 02/26/19 02/26/19 Previous Rx's Medication Instructions Recorded melatonin 3 mg disintegrating 9 mg PO HS #90 tab 03/12/18 tablet bupropion HCl 150 mg 24 hr tablet, 150 mg PO DAILY #90 tab-cap 05/09/18 extended release Allergies Allergy/AdvReac Type Severity Reaction Status Date / Time Sulfa (Sulfonamide Allergy Severe SOB,rash Verified 07/12/18 15:03 Antibiotics) aspirin AdvReac Intermediate Rash Verified 07/12/18 15:03 General Stated Complaint: Chest Pain DILCIA: 2 Review of Systems <Malcolm Alexander NP - Last Filed: 02/27/19 08:43> Constitutional Denies chills, Denies fever(s) and Denies malaise Cardiovascular Reports as per HPI, Reports chest pain, Denies chest pain with activity, Denies diaphoresis, Denies syncope, Reports rapid heart rate, Denies irregular heart rhythm, Reports palpitations and Denies dyspnea Respiratory Denies dyspnea Gastrointestinal Denies abdominal pain, Reports heartburn, Denies nausea and Denies vomiting Neurologic Denies syncope Psychiatric Reports anxiety Endocrine Reports palpitations PFS <Malcolm Alexander NP - Last Filed: 02/27/19 08:43> Medical History Abnormal Pap in her teens with / 2012 Pap + HPV Abnormal Pap smear of cervix (Chronic 08/26/14) Anxiety (Chronic 04/19/16) Attention deficit hyperactivity disorder (ADHD) (Chronic 06/29/17) Cervical neck pain with evidence of disc disease (Chronic) Cervical pain (neck) Depression (Chronic 04/19/16) RAJENDRA (generalized anxiety disorder) (Chronic 06/29/17) Insomnia (Chronic 05/24/16) Invasive ductal carcinoma of breast, stage 1 (Inactive) Mixed incontinence (Chronic 02/23/14) Obsessive compulsive disorder (Chronic 06/29/17) Past history anemia / NL for years Past history of depression following breast cancer diagno... Past history of heart murmur with Rx antibiotic/ not for ... Past history of Migraine without Auro / none for years Chief Technology Officer's nodule (Acute) PTSD (post-traumatic stress disorder) (Chronic 06/29/17) Stage 1L breast cancer 2009 Surgical History Breast, Lumpectomy cervical medial branch blocks (06/02/15) Colonoscopy - IV Sedation (~2009) Colonoscopy - IV Sedation (04/22/15) EGD (08/17/16) Ligation of fallopian tube Family History Other Diabetes Personal history of malignant neoplasm Social History Smoking/Tobacco Use Status: Never Alcohol Intake: never Drug use: Never Substance use type: does not use Adopted: No Foster care: No Number of Children: 2 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 Current gender identity: female What type of physical activity do you participate in: walking and aerobic Duration: 15-30 minutes/day Frequency: daily Seatbelt use: always Working smoke detector in home: Yes Carbon monox detector in home: Yes Firearms in home: No Do you feel safe at home: Yes Do you feel safe in your relationship?: Yes Exam <Malcolm Alexander NP - Last Filed: 02/27/19 08:43> Const General: cooperative, healthy appearing, comfortable, no acute distress, not diaphoretic and not ill appearing Nutritional Appearance: average body habitus Orientation: alert, awake and oriented x3 Limitations: mental status not altered Neck Neck: normal visual inspection, full ROM, trachea midline, supple and no anterior neck swelling Thyroid: thyroid normal Carotids: normal carotid upstroke and no bruits Chest Chest: normal inspection of the chest Resp Effort & Inspection: normal respiratory effort and able to speak in complete sentences Auscultation: clear to auscultation bilaterally Cardio Jugular venous pressure: no JVD Palpation: normal PMI Rate: regular rate Rhythm: regular rhythm Heart Sounds: S1 normal, S2 normal, no click, no gallops, no murmurs and no rubs Bruits: no abdominal aortic bruits and no carotid bruits Pulses: radial pulses present bilaterally 2+ GI Inspection: normal to inspection Palpation: soft, no aortic enlargement, no pulsatile masses and nontender Auscultation: normal bowel sounds Skin General skin exam: no rashes or lesions noted Neuro General: alert, awake, oriented x3, tone normal and moves all extremities Extrem General: normal capillary refill and no pedal edema Course <Malcolm Alexander, LEGAL NURSE CONSULTANT - Last Filed: 02/27/19 08:43> Vital Signs Temperature 36.6 C 02/26/19 14:57 Pulse 102 H 02/26/19 14:57 Respiratory Rate 18 02/26/19 14:57 Blood Pressure 151/79 H 02/26/19 14:57 Pulse Oximetry 100 02/26/19 14:57 Temperature 36.6 C 02/26/19 14:57 Temperature Source Temporal Artery Scan 02/26/19 14:57 Pulse 102 H 02/26/19 14:57 Respiratory Rate 18 02/26/19 14:57 Respiratory Effort 02/26/19 15:11 Blood Pressure 151/79 H 02/26/19 14:57 Blood Pressure Position Supine 02/26/19 14:57 Pulse Oximetry 100 02/26/19 14:57 Oxygen Delivery Method Room Air 02/26/19 14:57 Oxygen Flow Rate 0 02/26/19 14:57 Pain Level 7 02/26/19 14:57 Lab/Test Results Lab/Test Results: Laboratory Tests Range/Units 02/26/19 15:00 WBC (4.4-10.8) k/cumm 7.80 RBC (4.00-5.20) m/cumm 4.90 Hgb (12.0-15.5) g/dL 14.2 Hct (36.0-46.0) % 44.3 MCV (80-95) fL 90.4 MCH (27.0-33.0) pg 29.0 MCHC (32.0-36.0) g/dL 32.1 RDW (11.7-14.6) % 13.3 Plt Count (130-400) x1000/uL 367 MPV (8.0-11.0) fL 10.0 Immature Gran % 0.3 Neutrophils % 53.9 Lymphocytes % 34.4 Monocytes % 9.1 Eosinophils % 1.7 Basophils % 0.6 Absolute Neutrophils (1.2-6.7) k/cumm 4.21 Absolute Lymphocytes (1.2-3.4) k/cumm 2.68 Absolute Monocytes (0.11-0.7) k/cumm 0.71 H Absolute Eosinophils (0.0-0.7) k/cumm 0.13 Absolute Basophils (0.0-0.2) k/cumm 0.05 Sign Out <Malcolm Alexander NP - Last Filed: 02/27/19 08:43> Sign Out Data: Sign Out Comment: Patient signed out to Dr. Con Tovar pending labs, chest x- ray, and reassessment. Differential diagnosis to include panic attack, stress response, ACS. Last updated by Malcolm Alexander NP at 02/26/19 16:03
[2019-02-26 15:53] LABS: INR 1.4 (0.9-1.1); PTT Activated 21.4 sec (21.0-31.4); Prothrombin Time 14.1 sec (9.3-11.0)
[2019-02-26 15:58] LABS: ALT 20 U/L (12-78); AST 12 U/L (15-37); Albumin 4.1 g/dL (3.4-5.0); Alkaline Phosphatase 100 U/L (46-116); BUN 11 mg/dL (7-18); Bilirubin, Total 0.2 mg/dL (0.2-1.0); Calcium 8.9 mg/dL (8.5-10.1); Chloride 103 mmol/L (98-107); Estimated GFR 59.43 (mL/min/1.73m2); Glucose 103 mg/dL (70-100); Magnesium 2.1 mg/dL (1.8-2.4); Sodium 140 mmol/L (136-145); Total Protein 7.6 g/dL (6.4-8.2)
[2019-02-26 15:59] LABS: Troponin I < 0.05 ng/mL (0.00-0.06)
[2019-02-26 16:12] LABS: D-Dimer 313 ng/mlFEU (<500)
[2019-02-26 16:21] LABS: TSH (W/Ref FT4) 4.35 uIU/mL (0.36-3.74)
[2019-02-26 16:38] LABS: FREE T4 1.06 ng/dL (0.76-1.46)
[2019-02-26 18:59] LABS: Troponin I < 0.05 ng/mL (0.00-0.06)
== END 2019-02-26 19:45 | disposition home or self-care (01) ==
PROVIDERS: Nurse Practitioner Family; Emergency Provider Student in an Organized Health Care Education/Training Program; PCP Nurse Practitioner Family
DX: R07.9 Chest pain, unspecified (principal); F41.9 Anxiety disorder, unspecified
CPT/HCPCS: 36415; 80053; 93005; 96361; 96374; 99285; 71046; 81003; 83735; 84439; 84443; 84484; 85025; 85379; 85610; 85730; 93010; 99284; J2060

== ENCOUNTER 2019-02-27 10:37 | Outpatient (CLI) | payer MEDICAID, SELFPAY ==
--- NOTE | 2019-02-27 13:00 | ETT_ITS ---
*[facility]* *[facility]* [address] [place] [address] Stress Electrocardiography Prasanth protocol Date of study: 02/27/2019 *PATIENT PRESENTATION* Height: 165.1cm (65in) Blood Pressure: Weight: 63.2kg (139lb) BSA: 1.71m^2 Ordering physician: Con Tovar Impressions: - Normal study after maximal exercise. - 84% of THR achieved. Subjectively chest pain improved with exercise and no objective findings. Summary: 1. Stress: The target heart rate was not achieved. Indication: R07.9. History: REASON FOR VISIT: PT WAS REFERED FOR TESTING AFTER BEING SEEN IN THE ED ON 02/26/19 FOR CHEST PAIN RADIATING INTO HER SIDE OF CHEST AND HER LEFT JAW. IN THE ED: PT'S EKGs X2 WERE NON-DIAGNOSTIC, SHOWED NO STEMI AND SHE HAD A NEGATIVE INITIAL AND NEGATIVE 2ND DELTA TROPONIN. PT REPORTS HER SYMPTOMS MAY BE RELATED TO ANXIETY AND STRESS, SHE HAS A HISTORY OF PTSD, OCD, ANXIETY AND DEPRESSION. PT HAD A NORMAL EXERCISE STRESS TEST IN 07/18/18. ON ARRIVAL TODAY PT DESCRIBES A 5 OUT OF 10 CHEST TIGHTNESS, STATES IT'S HARD TO GET A BREATH IN. PT APPEARS SLIGHTLY ANXIOUS STATES HER JOB IS STRESSFULL, SHE HATES HER JOB AND THAT SHE HAS TO GO BACK THERE AFTER THIS TEST TODAY. Risk factors: Family history of coronary artery disease. Cholesterol: 128mg/dl. HDL: 51mg/dl. LDL: 61mg/dl. Triglycerides: 108mg/dl. ALLERGIES: ASPIRIN. SULFA. MEDICATIONS: MELATONIN 3 MG Q HS. BUPROPION HCL 300 MG DAILY. TRAZODONE 50 MG DAILY. VIVANCE 70 MG DAILY. CYMBALTA 1 TAB DAILY (PT UNSURE OF DOSE). Protocol: Prasanth protocol. Baseline ECG: SINUS RHYTHM. HR 86 BPM. Stress protocol: + +---+ + + !Stage !HR !BP (mmHg) !Comments ! + +---+ + + !Baseline supine !86 !126/78 (94) ! ! + +---+ + + !Baseline standing !91 !128/80 (96) ! ! + +---+ + + !Stage I; 1.7mph, !136!152/80 (104)! ! !10degrees; 3 min ! ! ! ! + +---+ + + !Stage II; 2.5mph, !141!156/78 (104)!STAGE 1 OF PRASANTH PROTOCOL ! !12degrees; 3 min ! ! !MAINTAINED THROUGHOUT ! ! ! ! !TESTING. ! + +---+ + + !Peak stress !146! ! ! + +---+ + + !Recovery; 1 min !111!164/80 (108)! ! + +---+ + + !Recovery; 3 min !110!150/80 (103)! ! + +---+ + + !Recovery; 6 min !103!138/82 (101)! ! + +---+ + + * Stress results: Maximal heart rate during stress was 146bpm (84% of maximal predicted heart rate). The maximal predicted heart rate was 173bpm. The target heart rate was not achieved. The rate-pressure product for the peak heart rate and blood pressure was 43196ir Hg/min. Stress ECG: TREADMILL PORTION OF STRESS TEST ENDED IN 8 MINUTES & 53 SECONDS. STAGE 1 OF PRASANTH PROTOCOL MAINTAINED THROUGHOUT TESTING. NORMAL HEART RATE AND BLOOD PRESSURE RESPONSE TO EXERCISE MAX HR = 86 % OF TARGET = 84 NO ECTOPY APPROXIMATE METS ACHIEVED = 4.95 CHEST PAIN DOWN FROM A PRE-EXERCISE 5 OUT OF 10 CHEST TIGHTNESS TO A 2 OUT OF 10 CHEST PAIN WITH PEAK EXERCISE. NO SIGNIFICANT ST SEGMENT CHANGES UNABLE TO ASSESS ADEQUATELY FUNCTIONAL CAPACITY FOR EXERCISE DUE TO TREADMILL MAINTAINED AT STAGE 1 OF PRASANTH PROTOCOL THROUGHOUT ENTIRE TESTING. Study data: Colt Arroyo MD supervised and was readily available during the procedure. This study was interpreted by [facility]. Study status: Routine. Consent: The risks, benefits, and alternatives to the procedure were explained to the patient and informed consent was obtained. Procedure: Initial setup. A baseline ECG was recorded. Surface ECG leads and manual cuff blood pressure measurements were monitored. Heart sounds: Normal. Lung sounds: Normal. Treadmill exercise testing was performed using the Prasanth protocol. Study completion: The patient tolerated the procedure well and was discharged from the lab. Discharge: The patient left the laboratory in stable condition. Birthdate: Patient birthdate: 1970. Sex: Gender: female. Study date: Study date: 02/27/2019. Study time: 00:01 AM. Signature Documentation: The Stress ECG portion of this study was interpreted by Colt Arroyo MD. Electronically signed by Colt Arroyo 02/27/2019 14:43
== END 2019-02-27 10:57 ==
PROVIDERS: PCP Nurse Practitioner Family; Visit Provider Student in an Organized Health Care Education/Training Program
DX: R07.9 Chest pain, unspecified (principal); F41.9 Anxiety disorder, unspecified; Z82.49 Family history of ischemic heart disease and other diseases of the circulatory system
CPT/HCPCS: 93017

== ENCOUNTER 2019-04-24 17:01 | Outpatient (REF) | payer MEDICAID, SELFPAY ==
[2019-04-27 19:01] LABS: Anaplasma phagocytophilum Negative (Negative); B. miyamotoi PCR Negative (Negative); Babesia divergens/MO-1 Negative (Negative); Babesia duncani Negative (Negative); Babesia microti Negative (Negative); Ehrlichia chaffeensis Negative (Negative); Ehrlichia ewingii/canis Negative (Negative); Ehrlichia muris eauclairensis Negative (Negative)
[2019-04-28 13:05] LABS: Lyme Ab w Rflx to Lyme Confirm Negative
== END 2019-04-24 17:21 ==
LOC: NCHCN 17:01
PROVIDERS: PCP Nurse Practitioner Family; Visit Provider Nurse Practitioner Family
DX: M25.512 Pain in left shoulder (principal); M25.511 Pain in right shoulder
CPT/HCPCS: 87798; 86618

== ENCOUNTER 2019-06-27 02:16 | Outpatient (CLI) | payer MEDICAID, SELFPAY ==
--- NOTE | 2019-06-27 13:21 | DI.RAD_ITS ---
EXAM: XR CERVICAL SPINE COMP 4-5V CLINICAL HISTORY: RT SHOULDER JT PAIN, M25.511; LT SHOULDER JT PAIN, M25.512; NECK PAIN,M54.2 TECHNIQUE: Six views were obtained. COMPARISON: No exams were available for comparison FINDINGS: There is disc space narrowing at the C5-6 and C6-7 levels with prominent hypertrophic endplate change s noted at these levels. Moderate facet hypertrophic degenerative changes seen throughout the cervic al spine as well. The neural foramina appear well maintained on oblique views. No other significant bony abnormality seen. IMPRESSION: Degenerative changes of the cervical spine with evidence of disc degeneration at C5-6 and C6-7.
== END 2019-06-27 02:36 ==
PROVIDERS: PCP Nurse Practitioner Family; Visit Provider Nurse Practitioner Family
DX: M25.511 Pain in right shoulder (principal); M25.512 Pain in left shoulder; M54.2 Cervicalgia; M50.322 Other cervical disc degeneration at C5-C6 level; M50.323 Other cervical disc degeneration at C6-C7 level
CPT/HCPCS: 72050

== ENCOUNTER 2019-07-22 01:24 | Outpatient (CLI) | payer MEDICAID, SELFPAY ==
--- NOTE | 2019-07-22 10:00 | DI.MRI_ITS ---
EXAM: MR CERVICAL SPINE WO CLINICAL HISTORY: NECK PAIN M54.2. TECHNIQUE: Multiplanar multisequence MRI was performed. COMPARISON: MRI - CERVICAL SPINE WO CONT from 04/16/2015 FINDINGS: There is normal signal in the spinal cord. There is no evidence of tonsillar ectopia. At C7-T1, there is mild prominence of the osteophyte disc complex. No focal disc herniation, central spinal canal or neural foraminal stenosis is present. At C6-C7, there is prominence of the osteophyte disc complex. No significant central spinal canal or neural foraminal stenosis is present. At C5-C6, there is prominence of the osteophyte disc complex. There is mild narrowing of the central spinal canal. There is mild narrowing of the neural foramen bilaterally. There is mild hypertrophi c change of the left facet joint. At C4-C5, there is no focal disc herniation, central spinal canal or neural foraminal stenosis. Ther e is mild hypertrophic change of the left facet joint. At C3-C4, there is no focal disc herniation, central spinal canal or neural foraminal stenosis. At C2-C3, there is no focal disc herniation, central spinal canal or neural foraminal stenosis. IMPRESSION: 1. Multilevel degenerative changes in the cervical spine. 2. Findings are most marked at C5-C6 as described above.
--- NOTE | 2019-07-22 10:35 | DI.MRI_ITS ---
EXAM: MR UPPER JOINT LT WO CLINICAL HISTORY: LT SHOULDER JOINT PAIN M25.512. TECHNIQUE: Multiplanar multisequence MRI was performed. COMPARISON: None. FINDINGS: Bones: There is no fracture or contusion pattern. Mild hypertrophic changes are seen at the acromioclavicula r joint. No subacromial, subcoracoid or glenohumeral joint effusion is present. Rotator Cuff: There is partial tear of the supraspinatus tendon at its insertion site onto the greater tuberosity. The infraspinatus tendon is intact. The subscapularis and teres minor are normal. Muscles show norm al signal and size. No significant muscular fatty atrophy is present. Labrum and biceps anchor: The biceps tendon is normally located. The anchor is well maintained. The labrum is within normal li mits. Glenohumeral joint: The articular cartilage is well maintained. Ligaments: Unremarkable. Soft tissues: No cystic or solid soft tissue mass is appreciated. IMPRESSION: 1. Partial tear of the supraspinatus tendon at its insertion site onto the greater tuberosity. 2. Degenerative changes of the acromioclavicular joint.
--- NOTE | 2019-07-22 11:15 | DI.MRI_ITS ---
EXAM: MR UPPER JOINT RT WO CLINICAL HISTORY: RT SHOULDER JOINT PAIN M25.511. TECHNIQUE: Multiplanar multisequence MRI was performed. COMPARISON: None. FINDINGS: Bones: There is no fracture or contusion pattern. Hypertrophic changes are seen at the acromioclavicular lauren nt. No subacromial, subcoracoid or glenohumeral joint effusion is present. Rotator Cuff: There is tendinosis of the supraspinatus and infraspinatus tendons. No evidence of a tendon tear is seen. The subscapularis and teres minor are normal. The muscles show normal signal and size. No sig nificant muscular fatty atrophy is present. Labrum and biceps anchor: The biceps tendon is normally located. The anchor is well maintained. The labrum is within normal li mits on this noncontrast examination. Glenohumeral joint: The articular cartilage is unremarkable. Soft tissues: No cystic or solid mass is seen in the soft tissues. Ligaments: Unremarkable. IMPRESSION: 1. Tendinosis of the supraspinatus and infraspinatus tendons. No evidence of a rotator cuff tear. 2. Degenerative changes of the acromioclavicular joint.
== END 2019-07-22 01:44 ==
PROVIDERS: PCP Nurse Practitioner Family; Visit Provider Nurse Practitioner Family
DX: M54.2 Cervicalgia (principal); M50.322 Other cervical disc degeneration at C5-C6 level; M25.512 Pain in left shoulder; M19.012 Primary osteoarthritis, left shoulder; M75.102 Unspecified rotator cuff tear or rupture of left shoulder, not specified as traumatic; M25.511 Pain in right shoulder; M75.81 Other shoulder lesions, right shoulder; M19.011 Primary osteoarthritis, right shoulder
CPT/HCPCS: 72141; 73221

== ENCOUNTER 2019-08-27 03:43 | Outpatient (CLI) | payer MEDICAID, SELFPAY | END 2019-08-27 04:03 | PROVIDERS: PCP Nurse Practitioner Family; Visit Provider Nurse Practitioner Family | DX: R00.2 Palpitations (principal); R00.0 Tachycardia, unspecified | CPT/HCPCS: 93225 ==

== ENCOUNTER 2019-08-30 11:26 | Outpatient (CLI) | payer MEDICAID, SELFPAY ==
--- NOTE | 2019-09-03 10:22 | W.HOLTRPT ---
Date of service: 09/03/19 Time of Service: 10:22 Holter Monitor Report Holter Monitor Note: Patient was monitored for period of 48 hours. Rhythm throughout was sinus. Average heart rate was 98 bpm. Minimum heart rate was 78, maximum 138 There were no significant atrial or ventricular ectopic beats seen Patient symptoms of heart racing, dizziness, chest pain and anxiety corresponded to sinus rhythm and sinus tachycardia, rates 90 to 138 bpm
== END 2019-08-30 11:46 ==
PROVIDERS: PCP Nurse Practitioner Family; Visit Provider Nurse Practitioner Family
DX: R00.2 Palpitations (principal); R00.0 Tachycardia, unspecified
CPT/HCPCS: 93226

== ENCOUNTER 2019-11-20 18:27 | Outpatient (REF) | payer MEDICAID, SELFPAY ==
[2019-11-20 18:19] LABS: HCT 41.3 % (36.0-46.0); HGB 13.1 g/dL (12.0-15.5); Mean Corp. HGB Concentration 31.7 g/dL (32.0-36.0); Mean Corpuscular Hemoglobin 28.2 pg (27.0-33.0); Mean Platelet Volume 10.2 fL (8.0-11.0); Platelet Count 325 x1000/uL (130-400); RBC 4.64 m/cumm (4.00-5.20); RBC Distribution Width 13.3 % (11.7-14.6); White Blood Cell Count 6.15 k/cumm (4.4-10.8)
[2019-11-20 19:21] LABS: ALT 21 U/L (14-59); AST 15 U/L (15-37); Albumin 3.8 g/dL (3.4-5.0); Alkaline Phosphatase 94 U/L (46-116); Anion Gap 8.2 mmol/L (3-11); BUN 11 mg/dL (7-18); Bilirubin, Total 0.2 mg/dL (0.2-1.0); CO2 25.8 mmol/L (21.0-32.0); CREATININE 0.85 mg/dL (0.55-1.02); Calcium 8.9 mg/dL (8.5-10.1); Chloride 104 mmol/L (98-107); Glucose 88 mg/dL (74-106); Sodium 138 mmol/L (136-145); TSH (W/Ref FT4) 1.95 uIU/mL (0.36-3.74); Total Protein 6.7 g/dL (6.4-8.2)
== END 2019-11-20 18:47 ==
LOC: NCHCN 18:27
PROVIDERS: PCP Nurse Practitioner Family; Visit Provider Nurse Practitioner Family
DX: R00.2 Palpitations (principal); Z01.818 Encounter for other preprocedural examination
CPT/HCPCS: 80053; 85027; 84443

== ENCOUNTER 2019-11-25 08:16 | Outpatient (CLI) | payer MEDICAID, SELFPAY ==
[2019-11-26 18:36] LABS: COVID-19 RT-PCR Result NEGATIVE (Negative)
== END 2019-11-25 08:36 ==
PROVIDERS: PCP Nurse Practitioner Family; Visit Provider Student in an Organized Health Care Education/Training Program
DX: Z11.59 Encounter for screening for other viral diseases (principal)
CPT/HCPCS: U0003

== ENCOUNTER 2019-11-28 08:14 | Day surgery (SDC) | payer MEDICAID, SELFPAY ==
[2019-11-28] VITALS (8 sets, daily range): BP systolic 109–117; BP diastolic 49–71; PULSE 76–92; RESP 15–20; TEMP 36–36.6; O2SAT 97–100
[2019-11-28] MEDS: Lactated Ringers 1,000 ML 100 ML IV (08:45)
[2019-11-28] MEDS: Bupivacaine LIPOSOME/PF 133 MG/10 ML VIAL IJ (09:25)
[2019-11-28] MEDS: Bupivacaine 0.5% Pres-Free 30 ML VIAL (09:25)
[2019-11-28] MEDS: ceFAZolin 2 GM/50 ML BAG IVPB (09:37)
[2019-11-28] MEDS: EPINEPHrine 30 MG/30 ML VIAL (12:31)
--- NOTE | 2019-11-28 13:46 | W.PM.DSUDISC ---
Discharge Plan Disposition Patient Disposition: HOME Condition: Stable Discharge Details Reason For Visit: Left shoulder and hand surgery Attending Provider: Noe Buchanan Primary Care Provider: Kale Wade Home Meds and New Rx's Prescriptions: New naproxen 250 mg tablet 250 - 500 mg PO BID PRN (Reason: Moderate pain or swelling) Qty: 60 RF: 0 ondansetron 4 mg tablet,disintegrating 4 mg PO Q6H PRN (Reason: nausea or vomiting) Qty: 5 RF: 0 oxycodone 5 mg tablet 5 - 10 mg PO Q4H PRN (Reason: moderate to severe pain) Qty: 22 RF: 0 Continued duloxetine [Cymbalta] 30 mg capsule,delayed release(DR/EC) 120 mg PO HS RF: 0 melatonin 3 mg tablet,disintegrating 9 mg PO HS Qty: 90 RF: 0 fluticasone propionate [Flonase Allergy Relief] 50 mcg/actuation spray,suspension 1 spray JESSICA BID RF: 0 Vyvanse 70 mg capsule 70 mg PO DAILY RF: 0 trazodone 50 mg Tablet 50 mg PO .HS RF: 0 clonidine HCl 0.1 mg Tablet 0.1 mg PO QHS RF: 0 bupropion HCl [Wellbutrin XL] 150 mg tablet extended release 24 hr 300 mg PO HS RF: 0 Discharge Instructions Additional Instructions: Surgery: Shoulder arthroscopy with rotator cuff repair (subscapularis only), biceps tenodesis, arthroscopic distal clavicle excision and left long finger trigger release Activity: You should keep your arm at your side in a neutral position at all times except for physical therapy. Do not try to lift or raise your arm using your own muscles. You should use the sling whenever you are out of the house. You may have to adjust the abduction pillow or remove it for comfort. At home it is best to remove the sling and rest the arm on a pillow at your side or support the operative side with your other hand. You may allow the arm to dangle at your side. A physical therapy prescription will be provided separately today. For the hand, encourage daily passive and active range of motion to the long finger. Prescriptions: Naproxen 250 mg take 1-2 every 12 hours with a meal as needed for moderate pain Oxycodone 5 mg take 1-2 every 4-6 hours as needed for severe pain You may use [id number] Tylenol (acetaminophen) as needed for mild pain. These pain medications may be taken all at once or in different combinations as needed. Also, recommend Colace (docusate) as a stool softener as surgery and pain medicine cause constipation. Dressings: Leave stubbs and hand dressings in place for 2-3 days. May then remove and leave open to air or cover incisions with Band-Aids. May shower after 5 days as long as all incisions are clean and dry. Follow-up: 10-[address] Buchanan Please call the office during business hours with any questions or concerns. Let us know right away if you develop any redness, drainage, fevers, chest pain, or trouble breathing. Do not drink alcohol or drive for at least 24 hours after anesthesia. Referrals: Noe Buchanan MD [ [facility] STAFF PHYSICIAN] - Discharge Orders Discharge Orders: Discharge Order (Routine); Ordered 11/28/19 Ordered By: Noe Buchanan DS: Diagnosis Discharge Diagnosis (1) Arthritis of left acromioclavicular joint: Status: Acute (2) Tendinitis of long head of biceps brachii of left shoulder: Status: Acute (3) Trigger middle finger of left hand: Status: Acute (4) Impingement syndrome of left shoulder: Status: Acute (5) Left rotator cuff tear: Status: Acute (6) Bursitis of left shoulder: Status: Acute
--- NOTE | 2019-11-28 14:19 | W.PM.OP ---
Date of service: 11/28/19 Time of Service: 13:46 Operative Note Operative Note DATE OF PROCEDURE: 11/28/19 PRE-OP DIAGNOSIS: Left: 1. Rotator cuff tear 2. LHB tendinopathy 3. Bursitis 4. Impingement 5. AC joint arthritis 6. Long finger trigger finger POST-OP DIAGNOSIS: same PROCEDURE: Left: 1. Extensive debridement, CPT# 30737. This involved using arthroscopic hand instruments, power instruments, and radiofrequency instruments to perform a biceps tenotomy and debride areas of labral tearing, synovitis, and chondromalacia about the bicipital groove within the glenohumeral joint anteriorly and posteriorly. 2. Open biceps tenodesis, CPT# 19800. This involved reattaching the long head of the biceps tendon to the proximal humerus in the sub-pectoral area of the bicipital groove at the correct tension. 3. Subacromial decompression with partial acromioplasty, CPT# 98248. This involved using arthroscopic power instruments and a radiofrequency wand to complete a bursectomy and remove bone spurs on the undersurface of the acromion. 4. Rotator cuff repair, CPT# 51653. This involved repair of the subscapularis using anchor and suture to reattach the rotator cuff back to the footprint of the lesser tuberosity. 5. Arthroscopic distal clavicle excision, CPT# 77285. This involved arthroscopically exposing the underside of the acromioclavicular joint, smoothing out bone spurs, and using a davy to remove approximately 5 mm of the distal clavicle so there was no bone left engaging the acromion. 6. Long finger trigger release, CPT #92722 The education assistant was medically required in order to help assist in techniques above, which require positioning the arm, holding the arthroscope, and manipulating 2 to 4 instruments and sutures at the same time. This cannot be done without the help of an experienced education assistant. SURGEON: Noe Buchanan MEDICAL ONCOLOGY PHYSICIAN: Catherine Vidales ANESTHESIA: GETA and regional PATHOLOGY: none sent Patient was transported to: PACU Patient's condition: stable Implants: Arthrex: 4.75mm SwiveLocks x 1 and Unicortical Proximal Biceps Tenodesis Button Indications: The patient was diagnosed with the above conditions and appropriately indicated for surgical intervention. Please see complete medical record for details. Findings: Exam under anesthesia: Full, symmetrical range of motion. No instability. Glenohumeral joint: Significant synovitis anteriorly superiorly and posteriorly. Long head of the biceps injection/inflammation. SLAP tear and frayed/disrupted MGHL anterior labrum complex. Upper border subscapularis tear with mild chondromalacia between the subscapularis and long head of the biceps tendon groove. Mild supraspinatus fraying without exposed footprint. Intact infraspinatus. Subacromial space: Significant bursitis. Moderate undersurface acromial bone spur. Sharp impinging distal clavicle acromion joint. Mild supraspinatus fraying and thinning over the greater tuberosity centrally but no rotator cuff defect appreciated anterior laterally or posteriorly. Procedure Description: The patient was taken to the operating room and transferred to the operating room table. General anesthesia was induced. While under anesthesia, bilateral shoulders were examined. The patient was positioned in the beachchair position. All bony prominences were well-padded. Preoperative antibiotics were administered. The shoulder was prepped and draped in the usual sterile fashion. The correct patient, procedure, and side of the procedure were all verified prior to incision. Starting through the posterior portal a standard complete diagnostic arthroscopy was performed of the glenohumeral joint including inspection of the long head of the biceps, anterior and superior labrum, subscapularis tendon, supraspinatus and infraspinatus tendons, and axillary recess. The glenoid and humeral head cartilage as well as the posterior labrum were inspected from an anterior viewing portal. Significant findings noted above. The biceps tendon was tenotomized from the labrum using arthroscopic scissors. The upper border of the subscapularis could be retracted off the lesser tuberosity. The lesser tuberosity footprint was prepared using hand and power instruments for tendon healing. A rigid cannula was inserted anteriorly. The arm was positioned in neutral. Using a 1 portal technique, a suture lasso was used to pass a fiber tape through the lateral and superior subscapularis. The tap was used to localize placement of the anchor. The suture ends were passed through the anchor eyelet and the anchor was brought down to the bone with the sutures tensioned appropriately. The arm was brought through full external rotation demonstrating no restricted motion due to the repair and secure fixation of the tendon and anchor down to bone. 10 cc of 0.5% bupivacaine with epinephrine was infiltrated about a 2 to 3 cm longitudinal incision at the inferior margin of the pectoralis major localized over the long head of the biceps tendon. Blunt and sharp dissection were used to expose the tendon in the bicipital groove. The tendon was brought out of the wound and kept off the skin on top of a blue towel. The correct location for sub-pectoral fixation was localized, prepped with a rasp, and then drilled with a 3.2 mm drill pin in a unicortical fashion. Using a fiber loop suture the tendon was prepped from the musculotendinous junction a few centimeters proximal. The excess tendon was amputated. The free suture ends were then passed through the unicortical button implant. The drill pin was removed and the implant was placed into the humeral intramedullary canal. The button was flipped and the sutures were tensioned bringing the tendon down to bone. Tension and fixation were then tested and found to be appropriate. The free suture ends were brought around the tendon and the ends of the suture were were tied compressing tendon to the humerus. The wound was copiously irrigated with normal saline. Subcutaneous tissue was closed using 3-0 Monocryl in a buried interrupted fashion. Skin was closed using 3-0 Monocryl in a buried subcuticular running fashion. Skin glue was applied over the incision. Mastisol was applied about the incision. The incision was covered with Telfa, gauze, and covered with a Tegaderm dressing. Starting through the posterior portal, the arthroscope was directed into the subacromial space. A lateral 50 yard line lateral portal was created. A combination of power instruments and a radiofrequency ablator were used to debride bursitis anteriorly, posteriorly, and laterally as well as expose and smooth bone spurring on the undersurface of the acromion. The coracoacromial ligament was partially released. The bursectomy was completed viewing laterally and working from posteriorly and the rotator cuff was thoroughly inspected with findings noted above. The anterior portal was redirected towards the undersurface of the AC joint. Viewing from the lateral 50 yard line portal a shaver and electrocautery device were used to clear soft tissue from the undersurface of the AC joint. A davy was then inserted and used to remove the distalmost 5 mm of the distal clavicle and an adjacent significant undersurface acromial bone spur. Care was taken to alternate between working through the anterior portal and viewing through the anterior portal to ensure that proper amount of bone was removed and there was no engaging bone left behind. The shoulder was drained of arthroscopic fluid. All portal sites were copiously irrigated. These incisions were closed using 3-0 Monocryl in a buried fashion, covered with Mastisol, Steri-Strips, Xeroform, dry gauze, and ABDs. The dressings were covered and secured with Medipore tape. The shoulder drapes were taken down. The operative extremity was then taken out of the arm stubbs and placed upon a hand table with the patient still seated. The hand was reprepped and draped from the forearm distally and placed in supination and gentle external rotation of the hand table. 6 cc of 0.25% bupivacaine containing epinephrine was injected about the long finger A1 alexandra and beneath the alexandra in the tendon sheath for additional analgesia. A slightly oblique longitudinal incision was made in a skin crease volarly centered over the A1 alexandra. Sharp and blunt dissection was used to expose the margins of the alexandra. A Pendleton blade was used to incise the alexandra from proximal to distal taking care to protect the underlying tendons and adjacent fractures. The free alexandra ends were spread apart to fully expose the flexor tendons and release adhesion. The flexor tendons were delivered from the wound demonstrating excellent excursion. The finger was ranged through full flexion extension and no longer triggering. This wound was copiously irrigated normal saline. The skin was closed using 4-0 nylon in horizontal mattress fashion. Xeroform was applied over the incision followed by dry 4 x 4 gauze sterile soft roll and a 2 inch Donald wrap. And dressings were taken down. The operative extremity was placed into a sling for immobilization. The patient awoke from anesthesia without complication and was transferred to the recovery room in a stable condition.
== END 2019-11-28 16:05 | disposition home or self-care (01) ==
PROVIDERS: PCP Nurse Practitioner Family; Visit Provider Student in an Organized Health Care Education/Training Program
PROC: (CPT 29805; principal; 2019-11-28 09:00)
PROC: (CPT 23430; 2019-11-28 09:00)
PROC: (CPT 29827; 2019-11-28 09:00)
PROC: (CPT 23120; 2019-11-28 09:00)
PROC: (CPT 26055; 2019-11-28 09:00)
DX: M75.112 Incomplete rotator cuff tear or rupture of left shoulder, not specified as traumatic (principal); M75.22 Bicipital tendinitis, left shoulder; M75.52 Bursitis of left shoulder; M75.42 Impingement syndrome of left shoulder; M19.012 Primary osteoarthritis, left shoulder; M65.332 Trigger finger, left middle finger; M65.9 Synovitis and tenosynovitis, unspecified; M94.212 Chondromalacia, left shoulder; S43.432A Superior glenoid labrum lesion of left shoulder, initial encounter; X58.XXXA Exposure to other specified factors, initial encounter; G89.18 Other acute postprocedural pain
CPT/HCPCS: 29827; 26055; 29823; 29824; 23430; 29826; 76942; L3670; J0690; J1100; J1885; J2001; J2370; J2405; J2704

== ENCOUNTER 2020-01-20 16:48 | Outpatient (REF) | payer MEDICAID, SELFPAY ==
[2020-01-22 15:15] LABS: Chlamydia Result Negative (Negative); GC Result Negative (Negative)
== END 2020-01-20 17:08 ==
LOC: LBN 16:48
PROVIDERS: PCP Nurse Practitioner Family; Visit Provider Nurse Practitioner Women's Health
DX: Z11.3 Encounter for screening for infections with a predominantly sexual mode of transmission (principal)
CPT/HCPCS: 87491; 87591

== ENCOUNTER 2020-02-04 02:52 | Outpatient (CLI) | payer MEDICAID, SELFPAY ==
[2020-02-05 10:31] LABS: Hepatitis B Surface Ag Negative (Negative)
[2020-02-05 11:09] LABS: HIV-1/2 Ag & Ab Screen Negative (Negative)
[2020-02-05 11:26] LABS: Hepatitis C Ab w Rflx HCV PCR Negative (Negative)
[2020-02-06 11:07] LABS: Syphilis Total Ab w/Reflex Nonreactive (Nonreactive)
[2020-02-06 11:10] LABS: HSV Type 1 Ab, IgG Positive (Negative); HSV Type 2 Ab, IgG Positive (Negative)
== END 2020-02-04 03:12 ==
PROVIDERS: PCP Nurse Practitioner Family; Visit Provider Nurse Practitioner Women's Health
DX: Z11.3 Encounter for screening for infections with a predominantly sexual mode of transmission (principal)
CPT/HCPCS: 36415; 86803; 87340; 87389; 86695; 86696; 86780

== ENCOUNTER 2020-03-24 16:37 | Outpatient (REF) | payer MEDICAID, SELFPAY ==
--- NOTE | 2020-03-24 15:45 | PAPFT_PTH ---
PATIENT: Maite Mccall LOC: [facility] U#:[id number] AGE/SX: 49/F ROOM: RE03/24/[address]: Anahy Parnell NP : 1970 BED: DIS: 03/24/2020 SPEC #: [id number] RECD: 03/25/20 13:16 STATUS: GIFTY REEduardo #: [id number] AMBROSE: 03/24/20 15:[address]: Anahy Parnell NP DEPT: [facility] Cytology RECD BY: Monica Murdock ENTERED: 03/25/20 13:16 SP TYPE: PAPFT OTHR DR: Kale Wade Tissues: 1 - CX/ENDOCX FOR PAP SMEARS Procedures: PAP THIN PREP/UVM Screening HPV DNA PROBE Comments: [id number]
== END 2020-03-24 16:57 ==
LOC: LBN 16:37
PROVIDERS: PCP Nurse Practitioner Family; Visit Provider Nurse Practitioner Women's Health
DX: Z12.4 Encounter for screening for malignant neoplasm of cervix (principal); Z11.51 Encounter for screening for human papillomavirus (HPV)
CPT/HCPCS: 88142; 87624

== ENCOUNTER 2020-03-30 02:29 | Outpatient (CLI) | payer MEDICAID, SELFPAY ==
[2020-03-31 14:36] LABS: COVID-19 RT-PCR Result NEGATIVE (Negative)
== END 2020-03-30 02:49 ==
PROVIDERS: PCP Nurse Practitioner Family; Visit Provider Student in an Organized Health Care Education/Training Program
DX: Z01.818 Encounter for other preprocedural examination (principal)
CPT/HCPCS: U0003

== ENCOUNTER 2020-04-02 06:14 | Day surgery (SDC) | payer MEDICAID, SELFPAY ==
[2020-04-02] VITALS (8 sets, daily range): BP systolic 95–124; BP diastolic 45–75; PULSE 71–90; RESP 17–21; TEMP 36.4–36.8; O2SAT 96–100
[2020-04-02] MEDS: Lactated Ringers 1,000 ML 100 ML IV (06:56)
[2020-04-02] MEDS: Bupivacaine 0.5% Pres-Free 30 ML VIAL (07:24)
[2020-04-02] MEDS: Bupivacaine LIPOSOME/PF 133 MG/10 ML VIAL IJ (07:24)
[2020-04-02] MEDS: ceFAZolin 2 GM/50 ML BAG IVPB (07:54)
[2020-04-02] MEDS: EPINEPHrine 30 MG/30 ML VIAL (09:34)
--- NOTE | 2020-04-02 10:43 | W.PM.DSUDISC ---
Discharge Plan Disposition Patient Disposition: HOME Condition: Stable Discharge Details Reason For Visit: Right shoulder surgery Attending Provider: Noe Buchanan Primary Care Provider: Kale Wade Home Meds and New Rx's Prescriptions: New naproxen 250 mg tablet 250 - 500 mg PO BID PRN (Reason: Moderate pain or swelling) Qty: 60 RF: 0 oxycodone 5 mg tablet 5 - 10 mg PO Q4H PRN (Reason: moderate to severe pain) Qty: 15 RF: 0 Continued duloxetine [Cymbalta] 30 mg capsule,delayed release(DR/EC) 60 mg PO HS RF: 0 melatonin 3 mg tablet,disintegrating 9 mg PO HS Qty: 90 RF: 0 fluticasone propionate [Flonase Allergy Relief] 50 mcg/actuation spray,suspension 1 spray JESSICA BID RF: 0 Vyvanse 70 mg capsule 70 mg PO DAILY RF: 0 trazodone 50 mg Tablet 50 mg PO .HS RF: 0 clonidine HCl 0.1 mg Tablet 0.1 mg PO QHS RF: 0 bupropion HCl [Wellbutrin XL] 150 mg tablet extended release 24 hr 300 mg PO HS RF: 0 Discharge Instructions Additional Instructions: Surgery: Shoulder arthroscopy with biceps tenodesis, extensive debridement, subacromial decompression, and distal clavicle excision. Activity: You should gradually increase range of motion motion and use of your shoulder. Please perform daily stretching exercises. You may use your shoulder for all regular activities. Avoid heavy lifting, reaching overhead, and lifting away from body for approximately 6 to 8 weeks. You may use the sling whenever you are out of the house for a few weeks. You may have to adjust the abduction pillow or remove it for comfort. At home it is best to remove the sling and rest the arm on a pillow at your side or support the operative side with your other hand. You may allow the arm to dangle at your side. A physical therapy prescription will be electronically sent today. Prescriptions: Naproxen 250 mg take 1-2 every 12 hours with a meal as needed for moderate pain Oxycodone 5 mg take 1-2 every 4-6 hours as needed for severe pain You may use [id number] Tylenol (acetaminophen) as needed for mild pain. These pain medications may be taken all at once or in different combinations as needed. Also, recommend Colace (docusate) as a stool softener as surgery and pain medicine cause constipation. Dressings: Remove shoulder bandage after 3 days. Leave the sticky Steri-Strips in place until they fall off or remove them after you shower. Cover the incisions with Band-Aids or leave them open to air. The biceps bandage (inside upper arm) is glued on separately. You may leave this one on a few days longer if it is difficult to remove. There is also glue underneath this bandage that can be left in place until it peels off. You may shower after 5 days. Follow-up: 10-[address] Buchanan You may take off the leg compression stockings this evening at home. You may also leave them on a few days longer if you have a history of leg swelling or edema. Let us know right away if you develop any redness, drainage, fevers, chest pain, or trouble breathing. Do not drink alcohol or drive for at least 24 hours after anesthesia. Please call the office during business hours with any questions or concerns. Referrals: Neo Buchanan MD [ [facility] STAFF PHYSICIAN] - Discharge Orders Discharge Orders: Discharge Order (Routine); Ordered 04/02/20 Ordered By: Noe Buchanan DS: Diagnosis Discharge Diagnosis (1) Impingement syndrome of right shoulder: Status: Acute (2) Arthritis of right acromioclavicular joint: Status: Acute (3) Bursitis of right shoulder: Status: Acute (4) Tendonitis of long head of biceps brachii of right shoulder: Status: Acute
--- NOTE | 2020-04-02 11:02 | W.PM.OP ---
Date of service: 04/02/20 Time of Service: 10:43 Operative Note Operative Note DATE OF PROCEDURE: 04/02/20 PRE-OP DIAGNOSIS: Right: 1. AC joint arthritis 2. LHB tendinopathy 3. Bursitis 4. Impingement POST-OP DIAGNOSIS: same PROCEDURE: Right: 1. Extensive debridement, CPT# 25237. This involved using arthroscopic hand instruments, power instruments, and radiofrequency instruments to release to release the long head of the biceps tendon and debride areas of labral tearing, synovitis, partial articular rotator cuff tearing, and chondromalacia about the biceps groove within the glenohumeral joint anteriorly, superiorly and posteriorly. 2. Arthroscopic distal clavicle excision, CPT# 25098. This involved arthroscopically exposing the underside of the acromioclavicular joint, smoothing out bone spurs, and using a davy to remove approximately 5 mm of the distal clavicle so there was no bone left engaging the acromion. 3. Open biceps tenodesis, CPT# 63618. This involved reattaching the long head of the biceps tendon to the proximal humerus in the sub-pectoral area of the bicipital groove at the correct tension. 4. Subacromial decompression with partial acromioplasty, CPT# 16865. This involved using arthroscopic power instruments and a radiofrequency wand to complete a bursectomy and remove bone spurs on the undersurface of the acromion. The payroll administrative assistant was medically required in order to help assist in techniques above, which require positioning the arm, holding the arthroscope, and manipulating 2 to 4 instruments and sutures at the same time. This cannot be done without the help of an experienced payroll administrative assistant. SURGEON: Noe Buchanan MEDICAL MALPRACTICE PARALEGAL: Catherine Vidales ANESTHESIA: GETA, regional and local ESTIMATED BLOOD LOSS: 15 PATHOLOGY: none sent Patient was transported to: PACU Patient's condition: stable Implants: Arthrex: FiberTak 2.6 mm all-suture button implant Indications: The patient was diagnosed with the above conditions and appropriately indicated for surgical intervention. Please see complete medical record for details. Findings: Exam under anesthesia: Full, symmetrical range of motion Glenohumeral joint: Anterior, superior, and posterior labral fraying and synovitis. Minor fraying subscapularis with minimal footprint exposed. Partial articular sided supraspinatus tear starting at the long head of the biceps rotator interval without any significant footprint exposure. Intact subscapularis. Intact cartilage surfaces except for mild isolated chondromalacia about the biceps groove and subscapularis. No axillary recess loose bodies. Subacromial space: Moderate bursitis. Moderate subacromial bone spur and impinging inferior aspect of distal clavicle and acromion. Intact rotator cuff. Procedure Description: In the operating room, general anesthesia was induced. Bilateral shoulders were examined. The patient was positioned in the beachchair position. All bony prominences were well-padded. Preoperative antibiotics were administered. The shoulder was prepped and draped in the usual sterile fashion. The correct patient, procedure, and side of the procedure were all verified prior to incision. Starting through the posterior portal a standard complete diagnostic arthroscopy was performed of the glenohumeral joint including inspection of the long head of the biceps, anterior and superior labrum, subscapularis tendon, supraspinatus and infraspinatus tendons, and axillary recess. The glenoid and humeral head cartilage as well as the posterior labrum were inspected from an anterior viewing portal. Significant findings and interventions noted above. The biceps tendon was released from the superior labrum using arthroscopic scissors. Starting through the posterior portal, the arthroscope was directed into the subacromial space. A lateral 50 yard line lateral portal was created. A combination of power instruments and a radiofrequency ablator were used to debride bursitis anteriorly, posteriorly, and laterally as well as expose and smooth bone spurring on the undersurface of the acromion. The coracoacromial ligament was only partially released. The bursectomy was completed viewing laterally and working from posteriorly and the rotator cuff was thoroughly inspected with findings noted above. The anterior portal was redirected towards the undersurface of the AC joint. A shaver and electrocautery device were used to clear soft tissue from the undersurface of the AC joint. A davy was then inserted and used to remove the distalmost 5 mm of the distal clavicle smoothy adjacent acromion. Care was taken to alternate between working through the anterior portal and viewing through the anterior portal to ensure that proper amount of bone was removed and there was no engaging bone left behind especially superiorly. The shoulder was drained of arthroscopic fluid. 10 cc of 0.5% bupivacaine with epinephrine was infiltrated about a 2 to 3 cm longitudinal incision at the inferior margin of the pectoralis major localized over the long head of the biceps tendon. Blunt and sharp dissection were used to expose the tendon in the bicipital groove. The tendon was brought out of the wound and kept off the skin on top of a blue towel. Using a fiber loop suture the tendon was prepped from the musculotendinous junction a few centimeters proximal. The excess tendon was amputated. The correct location for sub-pectoral fixation was localized, prepped with a rasp, and then drilled with a 2.6 mm drill pin in a unicortical fashion through the guide. The FiberTak button implant was inserted through the guide, deployed, and tested. The free FiberLoop suture ends were then passed through the implant using the preloaded FiberLoop sutures. The sutures were tensioned bringing the tendon down to bone. Tension and fixation were then tested and found to be appropriate. The free ends of the suture were were tied [id number] compressing tendon to bone. The wound was copiously irrigated with normal saline. Subcutaneous tissue was closed using 3-0 Monocryl in a buried interrupted fashion. Skin was closed using 3-0 Monocryl in a buried subcuticular running fashion. Skin glue was applied over the incision. Mastisol was applied about the incision. The incision was covered with Telfa, gauze, and covered with a Tegaderm dressing. All portal sites were copiously irrigated. These incisions were closed using 3-0 Monocryl in a buried fashion, covered with Mastisol, Steri-Strips, Xeroform, dry gauze, and ABDs. The dressings were covered and secured with Medipore tape. The operative extremity was placed into a sling for immobilization. The patient awoke from anesthesia without complication and was transferred to the recovery room in a stable condition.
== END 2020-04-02 13:53 | disposition home or self-care (01) ==
PROVIDERS: PCP Nurse Practitioner Family; Visit Provider Student in an Organized Health Care Education/Training Program
PROC: (CPT 29805; principal; 2020-04-02 07:30)
PROC: (CPT 23430; 2020-04-02 07:30)
DX: M75.41 Impingement syndrome of right shoulder (principal); M19.011 Primary osteoarthritis, right shoulder; M75.51 Bursitis of right shoulder; M75.21 Bicipital tendinitis, right shoulder
CPT/HCPCS: 23430; 29824; 29823; 29826; 76942; L3670; J0690; J1100; J1885; J2001; J2250; J2370; J2405; J2704

== ENCOUNTER 2020-06-01 16:12 | Outpatient (REF) | payer MEDICAID, SELFPAY ==
[2020-06-05 07:12] LABS: Patient Race White; SARS-CoV-2 RNA Undetected (Undetected); SARS-CoV-2 Specimen Source Nasal
== END 2020-06-01 16:32 ==
LOC: NCHCN 16:12
PROVIDERS: PCP Nurse Practitioner Family; Visit Provider Nurse Practitioner Family
DX: J31.0 Chronic rhinitis (principal)
CPT/HCPCS: U0003

== ENCOUNTER 2020-11-04 01:29 | Outpatient (CLI) | payer MEDICAID, SELFPAY ==
--- NOTE | 2020-11-04 | DI.CT_ITS ---
Exam(s) CT CHEST WO EXAM: CT CHEST WO CLINICAL HISTORY: F/U PULMONARY NODULE, R91.1. TECHNIQUE: Multi planar reconstructions were performed. CONTRAST MATERIAL: None COMPARISON: CT CT CHEST W from 02/11/2019 FINDINGS: CHEST: LUNGS: In the right lung previously described small benign-appearing fissure related nodule is unchan ged, typical location for pseudo nodule. There are no additional significant the findings in the rig ht lung. No significant findings in the opposite-left lung. No pleural effusions. No significant f ocal findings in the trachea and mainstem bronchi. No bronchiectasis. MEDIASTINUM: There is no obvious hilar nor mediastinal adenopathy. Visualized thyroid unremarkable.No obvious axillary adenopathy CARDIAC: Heart size is normal. There is no pericardial effusion.Caliber of the thoracic aorta is wit hin normal limits. VISUALIZED UPPER ABDOMEN:No significant adrenal findings. OSSEOUS: No significant osseous lesions.. IMPRESSION: 1. Continued stable appearance of the previously described small benign-appearing fissure based nodul e in the right lung. No new significant pulmonary findings. No pleural effusions nor intrathoracic adenopathy. RADIATION DOSE DELIVERED: 457.27mGy.cm Total DLP DATA REPOSITORY: All CT scans at this facility are submitted to the National Radiology Data Registry (NRDR) Dose Index Registry (DIR) with the [employer] (ACR). RADIATION OPTIMIZATION: All CT scans at this facility use at least one of these dose optimization te chniques: automated exposure control; mA and/or kV adjustment per patient size (includes targeted exa ms where dose is matched to clinical indication); or iterative reconstruction.
== END 2020-11-04 01:49 ==
PROVIDERS: PCP Nurse Practitioner Family; Visit Provider Nurse Practitioner Family
DX: R91.1 Solitary pulmonary nodule (principal)
CPT/HCPCS: 71250

== ENCOUNTER 2021-03-09 02:31 | Outpatient (CLI) | payer MEDICAID, SELFPAY ==
[2021-03-09 10:55] LABS: Source Nasal/Nares
[2021-03-09 13:24] LABS: COVID-19 PCR Negative (Negative)
== END 2021-03-09 02:32 | disposition home or self-care (01) ==
LOC: LBO 02:31
PROVIDERS: PCP Physician Assistant; Visit Provider Surgery
DX: Z20.822 Contact with and (suspected) exposure to COVID-19 (principal); Z01.818 Encounter for other preprocedural examination
CPT/HCPCS: 87635

== ENCOUNTER 2021-03-11 09:37 | Day surgery (SDC) | payer MEDICAID, SELFPAY ==
[2021-03-11 10:01] VITALS: BP 135/79; PULSE 77; RESP 16; TEMP 36.2; O2SAT 100
[2021-03-11] MEDS: Lactated Ringers 1,000 ML 80 ML IV (10:30)
--- NOTE | 2021-03-11 11:05 | ANES.PREOP_ITS ---
General Info Date of Service Date Performed: 03/11/21 Height: 5 ft 4.5 in Weight: 68.4 kg Body Mass Index (BMI): 25.4 Surgical Procedure: Operation Date: 03/11/21 09:50 Proposed Procedures Side Surgeon p Colonoscopy/Gastroscopy Catherine Chakraborty, Meds Allergies and Home Medications Allergies Allergy/AdvReac Type Severity Reaction Status Date / Time Sulfa (Sulfonamide Allergy Severe SOB,rash Verified 03/11/21 10:09 Antibiotics) aspirin AdvReac Intermediate Rash Verified 03/11/21 10:09 Home Medication Medication Instructions Recorded melatonin 3 mg disintegrating 9 mg PO HS #90 tab 03/12/18 tablet trazodone 50 mg PO .HS 02/26/19 lisdexamfetamine 70 mg capsule 70 mg PO DAILY 04/02/19 bupropion HCl [Wellbutrin XL] 300 mg PO HS 11/25/19 fluticasone propionate 50 1 spray JESSICA BID PRN 06/09/20 mcg/actuation nasal spray,suspension ibuprofen 800 mg tablet 800 mg PO BID #60 tab 06/09/20 bisacodyl 5 mg tablet,delayed 5 mg PO ONCE #4 tab 02/24/21 release polyethylene glycol 3350 17 238 g PO ONCE #238 g 02/24/21 gram/dose oral powder famotidine [Heartburn Relief 10 mg PO BID PRN 03/09/21 (famotidine)] Current Visit Medications: Current Medications Generic Name Dose Route Start Last Admin Trade Name Freq PRN Reason Stop Dose Admin Hyoscyamine Sulfate 0.125 mg 03/10/21 21:50 Hyoscyamine 0.125 Mg Sl/Oral/Chew SL DIRECTED PRN Ringer's Solution 1,000 mls @ 80 mls/hr 03/11/21 06:00 03/11/21 10:30 IV 04/09/21 23:59 80 mls/hr INFUSION NISHANT Administration IV Miscellaneous Supplies 1 each 03/11/21 06:00 Iv Access IV 04/09/21 23:59 DIRECTED NISHANT Ondansetron HCl 4 mg 03/10/21 21:50 Ondansetron 4 Mg/2 Ml Vial IVP Q4H PRN PRN Nausea / Vomiting Sodium Chloride 0 ml 03/11/21 06:00 Normal Saline Flush 10 Ml Syr IV 04/09/21 23:59 PRN PRN Sodium Chloride 0 ml 03/11/21 06:00 Normal Saline 10 Ml Vial IJ 04/09/21 23:59 DIRECTED PRN Sterile Water 0 ml 03/11/21 06:00 Water,Injection,Sterile 10 Ml Vial IJ 04/09/21 23:59 DIRECTED PRN PFSH Active Problems Active Problems: Problem Status Onset Code Tendonitis of long head of biceps brachii of right shoulder M75.21 Temporomandibular joint dysfunction M26.609 Family history of heart disease Z82.49 Heart palpitations R00.2 Pulmonary nodules R91.8 Abdominal pain R10.9 Common bile duct dilatation K83.8 Deviated nasal septum J34.2 Nasal valve collapse J34.89 Hypertrophy of inferior nasal turbinate J34.3 Nasal obstruction J34.89 Major depression F32.9 Urge and stress incontinence N39.46 Sleep disorder G47.9 Pulmonary nodule R91.1 Hx of breast cancer Z85.3 Abnormal anal Papanicolaou smear R85.619 Impingement syndrome of left shoulder M75.42 Impingement syndrome of right shoulder M75.41 Tendinitis of long head of biceps brachii of left shoulder M75.22 Arthritis of left acromioclavicular joint M19.012 Arthritis of right acromioclavicular joint M19.011 HSV infection B00.9 Trigger middle finger of left hand M65.332 Right rotator cuff tendonitis M75.81 Biceps tendinitis of left upper extremity M75.22 Left rotator cuff tear M75.102 Bursitis of left shoulder M75.52 Bursitis of right shoulder M75.51 Fibromyalgia M79.7 [employer] Trimmer's nodule L28.1 PTSD (post-traumatic stress disorder) 06/29/17 F43.10 Obsessive compulsive disorder 06/29/17 F42.9 Mixed incontinence 02/23/14 N39.46 Insomnia 05/24/16 G47.00 RAJENDRA (generalized anxiety disorder) 06/29/17 F41.1 Depression 04/19/16 F32.9 Cervical neck pain with evidence of disc disease M50.90 Attention deficit hyperactivity disorder (ADHD) 06/29/17 F90.9 Anxiety 04/19/16 F41.9 Abnormal Pap smear of cervix 08/26/14 R87.619 Medical History Medical History Abnormal Pap in her teens with Cryo / 2013 Pap + HPV Abnormal Pap smear of cervix (08/26/14) 2013 + HPV. 2013 and 2014 Nl. Plan q3yr Pap/HPV cotesting. Allergic rhinitis Anxiety (04/19/16) Attention deficit hyperactivity disorder (ADHD) (06/29/17) Biceps tendinitis of left upper extremity Bursitis of left shoulder Bursitis of right shoulder Cervical neck pain with evidence of disc disease MRI C5-6 osteophyte prominence with ? disk involvement. s/p steroid inj x2 05/2015 and 06/2015. No surgery. Cervical pain (neck) s/p steroid inj at [facility] pain clinic 2014. Depression (04/19/16) 06/2017 Dr. Dent psych consult: feel depression more 2/2 to other psychiatric comorbidities (PTSD, ADHD, OCD, RAJENDRA) & life stressors Fibromyalgia RAJENDRA (generalized anxiety disorder) (06/29/17) HPV test positive HSV infection Asymptomatic, Positive HSV 1 and 2 antibodies January 2020 Insomnia (05/24/16) 08/27/18 appointment with Sleep Clinic Invasive ductal carcinoma of breast, stage 1 2009. L breast. S/p partial mastectomy/radiation. T1BN0. Neg sentinel node bx. s/p Tamoxifenx 5yrs. Has completed therapy. Surgery and F/U mammograms at [facility]. Left rotator cuff tear Mixed incontinence (02/23/14) Obsessive compulsive disorder (06/29/17) Past history anemia / NL for years Past history of depression following breast cancer diagno... Past history of heart murmur with Rx antibiotic/ not for ... Pt. states she had a murmur as a kid but does not as an adult Past history of Migraine without Auro / none for years [employer] Trimmer's nodule PTSD (post-traumatic stress disorder) (06/29/17) PHQ-9=23= severe depression RAJENDRA-7= 21= severe anxiety PCL-5=53= positive screen for PTSD Right rotator cuff tendonitis Shoulder joint pain Stage 1L breast cancer 2009 Trigger middle finger of left hand Viral syndrome Vision changes Surgical History Surgical History Breast, Lumpectomy L breast partial mastectomy. neg sentinel node bx. T1BN0. 03/31/20: Pt. denies having an mastectomy, but acknowledges lumpectomy cervical medial branch blocks (06/02/15) Dr Faustino Hardy C4-7 Colonoscopy - IV Sedation (~2009) ? 2009 FA, 2014 Dr. Nicholas marie Colonoscopy - IV Sedation (04/22/15) ? 2009 FA, 2014 Dr. Peterson neg EGD (08/17/16) Dr Peterson Ligation of fallopian tube 2002 Tobacco Smoking/Tobacco Use Status: Former Tobacco Use Alcohol Alcohol Intake: never Substance Use Substance use: Never Substance use type: does not use Vital Signs and Lab Results Vital Signs Most Recent Vital Signs in EMR: Most Recent Vital Signs Temp Pulse Resp BP Pulse Ox 36.2 C L 77 16 135/79 100 03/11/21 10:01 03/11/21 10:01 03/11/21 10:01 03/11/21 10:01 03/11/21 10:01 Lab Results Blood Type / Crossmatch: No Data to Display Complete Blood Count: No Data to Display Complete Metabolic Panel: No Data to Display Liver Function Panel: No Data to Display Coagulation Panel: No Data to Display Cardiac Panel: No Data to Display Arterial Blood Gas: No Data to Display Venous Blood Gas: No Data to Display Pancreas Panel: No Data to Display Thyroid Panel: No Data to Display Infectious Disease: Coronavirus (COVID-19)(PCR) Negative (Negative) 03/09/21 08:37 03/09/21 Coronavirus 2019 Source Nasal/Nares 03/09/21 08:37 03/09/21 Blood Cultures: No Data to Display Toxicology Panel: No Data to Display Panel: No Data to Display Imaging and Studies Imaging and Studies Stress Test Summary: 02/2019: normal study after maximal exercise, 84% of THR achieved, chest pain improved with exercise. Echocardiogram Summary: 07/2018: LVEF 60-65%, Mild MR, Anesthesia Assessment and Plan Anesthesia History Personal History: No History of Anesthesia Complications Family History: No Family History of Anesthesia Complications Exercise Tolerance Exercise Tolerance: Metabolic Equivalents>4 Cardiac & Pulmonary Exam Cardiac Exam: Normal S1/S2 Heart Sounds Pulmonary Exam: Clear Bilateral Breath Sounds Airway Exam Known Difficult Airway: No Mallampati Class: 3 Mouth Opening: Narrow (< 3cm) Thyromental Distance: Greater than 3 cm Neck Range of Motion: Full ROM Neck Circumference: Normal Teeth Condition: Normal Dentition ASA Classification ASA Score: ASA 2 Emergency Case?: No NPO Status NPO Status: NPO Clears >2 hours, Solids >8 hours Status Status: Not Per Patient Anesthesia Plan Resuscitation Status: Full Code Anesthesia Technique: General Anesthesia Airway Planned: Natural Airway Monitors Used: Standard Monitors Preoperative Comments:: 50 yo female for colonoscopy/EGD for screening colo, epigastric pain. previous anesthesia glide 3 grade 1, easy mask, blood in mouth on extubation and nausea.
[2021-03-11 11:44] VITALS: BMI 25.4
--- NOTE | 2021-03-11 12:28 | BOWEL_PTH ---
PATIENT: Maite Mccall LOC: [facility] U#:[id number] AGE/SX: 50/F ROOM: RE03/11/[address]: Catherine Chakraborty : 1970 BED: DIS: 03/11/2021 SPEC #: [id number] RECD: 03/11/21 13:53 STATUS: GIFTY RE #: [id number] AMBROSE: 03/11/21 12:[address]: Catherine Chakraborty DEPT: Surgical Specimen RECD BY: Shanna Hansen ENTERED: 03/11/21 13:57 SP TYPE: Bowel OTHR DR: Jason Elias Tissues: 1 - BIOPSY BOWEL 2 - BIOPSY BOWEL 3 - STOMACH BIOPSY 4 - STOMACH BIOPSY 5 - ESOPHAGUS BIOPSY Procedures: GROSS AND MICRO LEVEL 4 Comments: [id number]
[2021-03-11 12:56] VITALS: BP 107/68; PULSE 79; RESP 16; TEMP 36.3; O2SAT 100
--- NOTE | 2021-03-11 13:00 | W.ANESPOSTOP ---
Postoperative Evaluation Date, Time and Location Date Performed: 03/11/21 Time Performed: 13:00 Patient Location: Day Surgery Unit Vital Signs Most Recent Imported Vital Signs: Most Recent Vital Signs Temp Pulse Resp BP Pulse Ox 36.2 C L 77 16 135/79 100 03/11/21 10:01 03/11/21 10:03/11/21 10:03/11/21 10:03/11/21 10:01 Most Recent Manually Entered Vital Signs: Adult Blood Pressure: 107/68 Heart Rate: 88 Respirations: 12 Oxygen Saturation (%): 99 Temperature (C): 36.4 C Pain Score (0-10 Scale): 0 Pain Score Most Recent Pain Score: Most Recent Pain Score Pain Level 0 03/11/21 10:01 Assessment Mental Status: Awake (Alert & Oriented to Patient Baseline) Airway and Respiratory Function: Patent airway with normal (patient baseline) respiratory exam Cardiovascular Function: Hemodynamically Stable Hydration Status: Adequately Hydrated Nausea & Vomiting: No Nausea or Vomiting Pain: Pt. Denies Any Pain Peripheral Nerve Block: Patient did not receive a nerve block
[2021-03-11 13:01] VITALS: BP 107/68; PULSE 88; RESP 12; TEMPC 36.4; O2SAT 99
--- NOTE | 2021-03-11 13:04 | W.COLOREPORT ---
Colonoscopy Report Date of procedure: 03/11/21 Pre-op diagnosis general: CRC screening Surgeon: Catherine Chakraborty Anesthesia Type: General:No Airway Pathology: none sent Disposition: same day Prep: Miralax/Dulcolax Retraction Time: 9 mins Procedure Description: After informed consent was obtained the patient was taken to the procedure room and placed in a left decubitous position. Monitors were applied and a time out was done. The patients name, date of , procedure, allergies to medications and metal in their body was reviewed. The patient was then sedated. Once sedated and comfortable a rectal exam was done. External exam was normal. Internal exam revealed a normal sphincter tone and no palpable masses. The scope was then introduced and retrofelexed. No internal hemorrhoids were identified. The scope was then advanced to the cecum without difficulty. The TI and appendiceal orifice were identified. The prep was good. The scope was then slowly retracted over 9 minutes back into the rectum. There are no polyps, AVMs or diverticula visualized today. The scope was removed and the patient was woken up and taken back to Same day surgery in stable condition. The patient tolerated the procedure well and there were no immediate complications. Follow up: The patient should follow up in 10 years unless they develop changes in bowel habits or other new gastrointestinal complaints.
[2021-03-11 13:24] VITALS: BP 134/81; PULSE 72; RESP 16; TEMP 36.5; O2SAT 100
--- NOTE | 2021-03-11 13:55 | W.PM.DSUDISC ---
Discharge Plan Disposition Patient Disposition: HOME Condition: Good Discharge Details Reason For Visit: stomach and colon scope Attending Provider: Catherine Chakraborty Primary Care Provider: Jason Elias Home Meds and New Rx's Prescriptions: Continued melatonin 3 mg tablet,disintegrating 9 mg PO HS Qty: 90 RF: 0 Vyvanse 70 mg capsule 70 mg PO DAILY RF: 0 fluticasone propionate [Flonase Allergy Relief] 50 mcg/actuation spray,suspension 1 spray JESSICA BID PRNRF: 0 trazodone 50 mg Tablet 50 mg PO .HS RF: 0 bupropion HCl [Wellbutrin XL] 150 mg tablet extended release 24 hr 300 mg PO HS RF: 0 Discontinued bisacodyl [Dulcolax (bisacodyl)] 5 mg tablet,delayed release (DR/EC) 5 mg PO ONCE Qty: 4 RF: 0 polyethylene glycol 3350 17 gram/dose powder 238 g PO ONCE Qty: 238 RF: 0 ibuprofen 800 mg tablet 800 mg PO BID Qty: 60 RF: 2 famotidine [Heartburn Relief (famotidine)] 10 mg tablet 10 mg PO BID PRNRF: 0 Discharge Instructions Additional Instructions: DSU Colonoscopy Post-Op Instructions Instructions for Everyone who is given Anesthesia: For your safety, please do the following for the next twenty-four (24) hours: *Do Not operate a motor vehicle (car, truck, motorcycle, etc.) *Do Not drink alcoholic beverages or use any recreational drugs for the first 24 hours or while taking pain medications. The medications in your body may have a reaction that can be dangerous. *Do Not make any important decisions or sign any important papers. Findings:gastritis esophagitis hiatal hernia normal colon -stop taking ibuprofen -start using protonix -Continue with lifestyle modifications: no alcohol, tobacco products, Aspirin or NSAID's (ibuprofen, Motrin, Naprosyn, aleve, etc). Try to avoid: soda pop/any carbonated beverages, caffeine (including tea & chocolate) and acidic foods, (tomatoes, citrus, onions, peppermints). Do not lie down for 30 minutes after eating, and do not eat 2 hours prior to bedtime. Avoid wearing tight fitting clothing/ belts Follow up:repeat colonoscopy in 10 yrs time 1. No lifting over 20 pounds or strenuous activity for the first 24 hours after your procedure. After 24 hours there are no restrictions on your activity but you may feel fatigued for a few days. 2. After you arrive home you may have a light meal and return to your normal diet as you can tolerate it without feeling sick to your stomach. 3. You may have a bloated, gaseous feeling in your belly (abdomen) after a colonoscopy. Passing gas and belching will help. Walking or lying down on your left side with your knees flexed may relieve the discomfort. 4. You may have a sore throat for the next 48hrs. Gargle with salt water as needed. Call the office at [phone] (Office) or [phone] (Hospital) right away if you notice any of the following: a.Vomiting of blood or ?coffee ground stools?. b.Rectal bleeding 1Tbsp, blood clots or continuous bleeding. c.Severe belly (abdominal) pain. d.A hard distended belly (abdomen) and an inability to pass gas. 4. Please don?t expect to have a normal BM (bowel movement) for 2-3 days after your procedure. 5. If there are questions regarding the findings of your procedure, please contact your doctor 6. If you are unable to contact your doctor with a problem, contact the hospital at [phone]. 7. Continue all your regular medications unless directed otherwise. I understand the above instructions and have no questions. Signature of Patient or Adult Escort Name of Responsible Adult Escort Signature of Nurse Date/Time Activity:: see above Diet:: see abvoe Discharge Orders Discharge Orders: Discharge Order (Routine); Ordered 03/10/21 Ordered By: Catherine Chakraborty DS: Diagnosis Discharge Diagnosis (1) Chronic erosive gastritis: Status: Acute (2) Hiatal hernia with GERD: Status: Acute (3) Esophagitis, Oxford grade A: Status: Acute
--- NOTE | 2021-03-17 12:12 | ENDO_ITS ---
Date of service: 03/11/21 Time of Service: 14:00 Endoscopy Report DATE OF PROCEDURE: 03/11/21 PRE-OP DIAGNOSIS: 1230 POST-OP DIAGNOSIS: other (gastritis- moderate. esophagitis- mild. sm hiatal hernia) SURGEON: Catherine Chakraborty ANESTHESIA TYPE: General:No Airway PATHOLOGY: other COMPLICATIONS: None DISPOSITION: same day PROCEDURE DESCRIPTION: After informed consent was obtained the patient was take to the procedure room and placed in a supine position. Monitors were applied and a time out was done. The patients name, date of , procedure type, allergies to medications and metal in their body was reviewed. A bite block was placed and the patient was sedated. Once sedated and comfortable the gastroscope was advanced through the oropharynx which was grossly normal into the esophagus. The proximal and mid-esophagus were normal. In the distal esophagus there was mild esophagitis. She does have a small hiatal hernia and a patulous hiatus. The scope was advanced into the stomach and through the pylorus into the 3rd portion of the duodenum. The duodenum was noted to be normal. Biopsies were done and all specimens are retrieved and no bleeding is noted. The scope was retracted back into the stomach and biopsies were done to rule out H. pylori. There were no ulcers. She does have moderate gastritis which is concentrated at the antrum but does spread out through the distal whole half of the stomach and a patchy erythematous pattern. There is an area at the 11 o'clock position at the antrum which is quite reddened and edematous. This may have been a small ulcer. the scope was retroflexed. The cardia and fundus were noted to be normal. There patulous hiatus and a small hiatal hernia noted. The scope was retracted back into the esophagus and biopsies were done of the GE junction to rule out Byrd's. The Z line was irregular. The scope was removed and the patient was woken up and taken back to [facility] in stable condition. Follow up:
== END 2021-03-11 14:35 | disposition home or self-care (01) ==
PROVIDERS: PCP Physician Assistant; Visit Provider Surgery
PROC: (CPT 43239; principal; 2021-03-11 09:45)
DX: Z12.11 Encounter for screening for malignant neoplasm of colon (principal); K21.9 Gastro-esophageal reflux disease without esophagitis; K44.9 Diaphragmatic hernia without obstruction or gangrene; K29.70 Gastritis, unspecified, without bleeding; K20.90 Esophagitis, unspecified without bleeding; K29.80 Duodenitis without bleeding; K31.89 Other diseases of stomach and duodenum
CPT/HCPCS: 43239; 45378; 88305; J2001

== ENCOUNTER → 2021-12-20 01:47 | Outpatient (CLI) | payer MEDICAID, SELFPAY ==
--- NOTE | 2021-12-20 | DI.CT_ITS ---
Exam(s) CT SINUS WO EXAM: CT SINUS WO CLINICAL HISTORY: CHRONIC RHINITIS,J31.0,CHRONIC ETHMOID SINUSITIS,J32.2. TECHNIQUE: Imaging Protocol: Axial computed tomography images with coronal and sagittal reformatted images were created and reviewed. No IV Contrast COMPARISON: No exams were available for comparison FINDINGS: MAXILLARY SINUSES: No significant mucosal thickening nor fluid levels. There is no evidence of bone dehiscence. OSTIOMEATAL UNITS: Patent bilaterally ETHMOIDAL AIR CELLS: Well aerated. No mucosal thickening nor fluid levels. SPHENOID SINUSES: Well aerated. No mucosal thickening nor fluid levels. FRONTAL SINUSES: Well aerated. No mucosal thickening nor fluid levels. NASAL SEPTUM AND TURBINATES:Nasal septum is relatively midline with no evidence of significant nasal septal spur. There is aeration of the right middle turbinates but no obstructive david bullosa. IMPRESSION: 1. No significant findings on the CT scan of the paranasal sinuses. RADIATION DOSE DELIVERED: 109.42mGy.cm Total DLP DATA REPOSITORY: All CT scans at this facility are submitted to the National Radiology Data Registry (NRDR) Dose Index Registry (DIR) with the [employer] (ACR). RADIATION OPTIMIZATION: All CT scans at this facility use at least one of these dose optimization te chniques: automated exposure control; mA and/or kV adjustment per patient size (includes targeted exa ms where dose is matched to clinical indication); or iterative reconstruction.
== END ==
PROVIDERS: PCP Physician Assistant; Visit Provider Physician Assistant
DX: J31.0 Chronic rhinitis (principal); J32.2 Chronic ethmoidal sinusitis
CPT/HCPCS: 70486

== ENCOUNTER 2022-03-20 09:55 | Outpatient (REF) | payer MEDICAID, SELFPAY ==
[2022-03-20 22:37] LABS: HCT 44.1 % (36.0-46.0); HGB 14.1 g/dL (11.2-15.7); MCH 28.6 pg (27.0-33.0); MCV 90 fL (80-95); MPV 10.9 fL (8.0-11.0); Platelet Count 292 10^3/uL (130-400); RBC 4.93 10^6/uL (3.93-5.22); RDW 12.7 % (11.7-14.6); RDW-SD 41.8 fL; WBC 5.98 10^3/uL (4.4-10.8)
[2022-03-20 22:46] LABS: Anion Gap 9.7 mmol/L (3-11); BUN 13 mg/dL (7-18); CO2 25.3 mmol/L (21.0-32.0); CREATININE 1.1 mg/dL (0.55-1.02); Calcium 8.9 mg/dL (8.5-10.1); Calculated LDL 97 mg/dL (<100); Chloride 104 mmol/L (98-107); Cholesterol 170 mg/dL (<200); Estimated GFR 61.22 (mL/min/1.73m2); Glucose 84 mg/dL (74-106); HDL Cholesterol 57 mg/dL (40-60); Potassium 4.6 mmol/L (3.5-5.1); Sodium 139 mmol/L (136-145); Triglyceride 82 mg/dL (<150)
== END 2022-03-20 09:56 | disposition home or self-care (01) ==
LOC: NCHCN 09:55
PROVIDERS: PCP Physician Assistant; Visit Provider Physician Assistant
DX: Z00.00 Encounter for general adult medical examination without abnormal findings (principal)
CPT/HCPCS: 80048; 80061; 85027

== ENCOUNTER 2022-07-11 17:57 | Outpatient (REF) | payer MEDICAID, SELFPAY | END 2022-07-11 17:58 | disposition home or self-care (01) | LOC: LBN 17:57 | PROVIDERS: PCP Physician Assistant; Visit Provider Obstetrics & Gynecology | DX: N94.9 Unspecified condition associated with female genital organs and menstrual cycle (principal) | CPT/HCPCS: 87480; 87510; 87660 ==

== ENCOUNTER → 2023-04-24 00:40 | Outpatient (CLI) | payer MEDICAID, SELFPAY ==
--- NOTE | 2023-04-24 | ETT_ITS ---
APPROVED REPORT Exam: Exercise Treadmill Patient Location: Out-Patient Room/Bed: Stress Nurse: Genie Macias RN Ordering Provider:WANG ADRIA, Contact Number: [phone] BMI: 26.56 Baseline Rhythm: Sinus Rhythm Indications: Atypical chest pain - patient reports she gets chest pain randomly, nothing in particula r brings it on and it goes away on its own. 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 Medical History Medical History: ADHD, insomnia, exertional SOB, anxiety Cardiac Medications: Vyvanse, Bupropion Allergies: Aspirin, Sulfa's Cardiac Risk Factors: +family history, former smoker Previous Cardiac Procedures: None Pretest Chest Pain Characteristics: None Exercise History: Indeterminate Physical Disabilities: None Lung Sounds: LCTA Heart Sounds: S1/S2, regular Stress Test Details Test: Exercise stress testing was performed using a Filippo protocol. Rest Stress HR Resting HR Supine: 71 bpm Max Heart Rate (APMHR): 168 bpm Resting HR Standin bpm Target HR (85% APMHR): 143 bpm Max HR Achieved: 150 bpm % of APMHR: 89 Recovery HR: 89 bpm HR response to stress: Normal HR response to stress BP Resting BP Supine: 120/72 mmHg Resting BP Standin/70 mmHg Max BP: 172/52 mmHg Recovery BP: 118/68 mmHg BP response to stress: Normal blood pressure response to stress. ECG Resting ECG: Sinus Rhythm Ectopy: None Comment: T wave inversion in aVL Stress ECG: Sinus Tachycardia ST Change: Minimal ST upsloping depression noted near the end of exercise Lead(s): II, III, aVF,V4,V5,V6 Stage: [address] Deviation: 0.5-1 mm Arrhythmia: None Recovery ECG: Sinus Rhythm Recovery ST Change: Minimal ST upsloping depression Lead(s): II, III, aVF,V4,V5,V6 Recovery ST Deviation: 1 mm Recovery Arrhythmia: Rare PAC Comment: ST changes resolved wihtin a few minutes of recovery Clinical Reason for Termination: Fatigue, Target HR Achieved Stress Symptoms: General Fatigue, Dizziness Exercise duration: 5 min16 sec Highest Stage Reached: Stage 2: 2.5 mph at 12% grade. Exercise capacity: 7.05 METs Angina Score: None Pickard Treadmill Score: 5.0 Rate Pressure Product: [id number] Stress ECG Conclusion 1. Resting electrocardiogram was within normal limits 2. Patient exercised on the Filippo protocol and completed a workload of 7.05 METS 3. Normal heart rate and blood pressure response to exercise. The patient achieved 89% of predicted heart rate for age 4. Electrocardiographic portion of the test was negative for myocardial ischemia 5. There were no dysrhythmias Pickard Treadmill Score is 5.0 which is Low risk. Stress Test Summary STAGE Time (mins) Speed (mph) Grade (%) HR BP SpO2 SYMPTOMS METS Supine 71 120/72 Standing 90 116/70 1 3 1.7 10 130 138/70 4.5 2 6 2.5 12 148 7 1 min recovery 92 172/52 3 min recovery 89 148/64 6 min recovery 90 118/68 Patient tolerated test well overall. Reported some vague symptoms of general fatigue, dizziness when the treadmill stopped, and a headache. Symptoms resolved with water and rest after the test.
== END ==
PROVIDERS: PCP Physician Assistant; Visit Provider Physician Assistant
DX: R07.9 Chest pain, unspecified (principal)
CPT/HCPCS: 93017

== ENCOUNTER 2023-12-11 12:47 | Outpatient (REF) | payer MEDICAID, SELFPAY ==
--- NOTE | 2023-12-11 12:10 | PAPFT_PTH ---
PATIENT: Maite Mccall LOC: [facility] U#:[id number] AGE/SX: 53/F ROOM: RE12/11/[address]: Malika Suarez MD : 1970 BED: DIS: 12/11/2023 SPEC #: [id number] RECD: 12/11/23 13:20 STATUS: JARODMissy REEduardo #: [id number] AMBROSE: 12/11/23 12:[address]: Malika Suarez DEPT: [facility] Cytology RECD BY: Monica Murdock ENTERED: 12/11/23 13:21 SP TYPE: PAPFT OTHR DR: Jason Elias Tissues: 1 - CX/ENDOCX FOR PAP SMEARS Procedures: PAP THIN PREP/[facility] Screening HPV DNA PROBE Comments: [id number]
== END 2023-12-11 12:48 | disposition home or self-care (01) ==
LOC: LBN 12:47
PROVIDERS: PCP Physician Assistant; Visit Provider Obstetrics & Gynecology
DX: Z11.51 Encounter for screening for human papillomavirus (HPV) (principal); Z01.419 Encounter for gynecological examination (general) (routine) without abnormal findings
CPT/HCPCS: 88142; 87624

== ENCOUNTER 2024-01-07 18:43 | Emergency (ER) | payer MEDICAID, SELFPAY ==
[2024-01-07] VITALS (19 sets, daily range): BP systolic 126–174; BP diastolic 60–88; PULSE 70–87; RESP 18; TEMP 36.6; O2SAT 95–100
--- OUTSIDE RECORDS SUMMARY | 2024-01-07 18:51 | XMS_ITS | Continuity of Care Document ---
Author Name Unknown Organization [facility] Ambulatory Clinics Address [address] [place] [address] Care Team Providers Care Body Recall Instructor Name Role Phone Irvin Elias Primary Care Physician Encounter [facility] NBR [id number] Date(s): 04/18/22 - 04/18/22 [facility] Ambulatory Clinics [address] [place], [place] [address] Encounter Diagnosis Chronic allergic rhinitis(Discharge Diagnosis) - 04/18/22 PND (post-nasal drip)(Discharge Diagnosis) - 04/18/22 Discharge Disposition: Home or Self Care Attending Physician: Jason Cao DO Assessment and Plan Extracted from: Title:Allergy Intradermal Sk in Procedure*, Allergy Skin Prick Test Procedure * Author:CARYN Brasher Date:04/18/22 Impression and Plan Diagnosis Chronic allergic rhinitis ([id number] J30.9, Discharge, Medical). PND (post-nasal drip) ([id number] R09.82, Discharge, Medical). Course: Notes: The patient has undergone allergy skin testing based on an office protocol today without complication. Based on the results today, pt reacted to [place], [place], penicillium, dust mites. She to start allergy immunotherapy in combination with avoidance measures which we also discussed. We reviewed a variety of measures including allergen avoidance, dietary link to positive allergy findings, along with conservative measures including nasal saline treatments. An educational pamphlet was provided with specific allergy concepts as well as a copy of allergy skin testing results . , PFP allergy multi-prick test ., The patient was placed in the allergy room. We reviewed the procedure, risk and complications and obtained consent. The areas of the lower forearm were wiped with alcohol and allowed to dry. The multi-test applicators were applied in usual fashion. After 15 minutes, each reaction site was measured and documented. The areas then were again cleaned with alcohol. The prick test inhaled 37 antigens as documented in the allergy packet. The patient successfully completed portion of the initial allergy screening. PFP Intradermal allergy test Consent was obtained and the patient assumes the risks for in office testing. The upper arms were wiped with alcohol. The areas were appropriately marked for antigen injection. 37 Antigens were injected and distributed between the right to left arms. Each produced a 4 mm wheal. 10 minutes passed and the wheals were measured, confirmed and documented. The patient was symptom free and tolerated the procedure well. The results were recorded and final end points were determined. The patient has been instructed in allergy avoidance as well as the risks and benefits of immunotherapy. The patient was provided their allergy results and will be offered immunotherapy based on the positive results. The patient left the office in stable condition. . Functional Status 04/18/22 Other exposure to Infectious Disease Non e Vital Signs Most recent to oldest [Reference Range]: 1 Respiratory Rate [12-24 br/min] 75 br/mi n *HI* (04/18/22 9:36 AM) Blood Pressure [90-140/60-90 mmHg] 120/9 0mmHg (04/18/22 9:36 AM) Social History Social History Type Response Tobacco Former tobacco user Tobacco Use:. Sex Patient Care team information Personnel Name: Irvin Elias Address: Address: [facility] [address] [place], [place] [address]
--- NOTE | 2024-01-07 18:55 | ED.GENADUL_ITS ---
Discharge Plan Disposition Patient Disposition: Home Condition: Stable Discharge Details Clinical Impression: Allergic reaction Primary Care Provider: Jason Elias ED Provider: Anshul Magana Home Meds and New Rx's Prescriptions: New albuterol sulfate 90 mcg/actuation aerosol powdr breath activated 2 inh inhalation Q4H PRNQty: 1 0RF famotidine 20 mg tablet 20 mg PO ONCE PRN (Reason: allergic reaction) Qty: 10 0RF cetirizine 10 mg tablet 10 mg PO ONCE Qty: 10 0RF epinephrine 0.3 mg/0.3 mL auto-injector 0.3 mg IM ONCE Qty: 2 0RF Rx Instructions: as a single dose; may repeat once Continued Omnaris 50 mcg spray,non-aerosol 2 spray intranasal DIRECTED Rx Instructions: into each nostril lisdexamfetamine [Vyvanse] 40 mg capsule 40 mg PO DIRECTED cholecalciferol (vitamin D3) 10 mcg (400 unit) capsule 10 mcg PO DAILY melatonin 3 mg tablet,disintegrating 9 mg PO HS Qty: 90 0RF fluticasone propionate [Flonase Allergy Relief] 50 mcg/actuation spray,suspension 1 spray JESSICA BID PRN trazodone 50 mg Tablet 50 mg PO .HS bupropion HCl [Wellbutrin XL] 150 mg tablet extended release 24 hr 300 mg PO HS Rx Instructions: to take with 300mg tab to total 450 mg daily. Discharge Instructions Instructions: How to use an epinephrine autoinjector, Albuterol, Famotidine, Epinephrine (Systemic), Cetirizine (Systemic), Allergic Reaction ED Additional Instructions: You were seen in the emergency department for your likely anaphylactic reaction to some sort of insect sting whether this was a bee or a wasp is unclear. I have prescribed you albuterol as well as an EpiPen as well as [id number] medicines like Pepcid famotidine. Please take 50 mg of Benadryl on further exposures, use your EpiPen as needed, take a famotidine and cetirizine as well. Use albuterol for any wheezing, present to ED for any anaphylactic reaction. Referrals: Jason Elias [Primary Care Provider] - Discharge Data Discharge Date/Time-TO BE ENTERED AT DEPARTURE: 01/07/24 21:11 HPI General Date/Time Provider Initiated Documentation: 01/07/24 18:52 . HPI Narrative: 53 year-old female presents to ED today by EMS with a chief complaint of possible allergic reaction to bee sting around 1400. Patient had gone to urgent care and was given 0.3mg Epi @ 1700. Quality described as states she had rash, felt nauseous, had a headache, denies shortness of breath at onset of bee sting, no radiation to diffuse hives on arrival, wheezing, tongue swelling, lip swelling, active vomiting. Severity is described as severe. Palliating factors include took 50mg Benadryl at onset of bee sting. Provoking factors include nothing specific. Events leading up to the incident/Associated Symptoms: Patient denies prior anaphylaxis to bee stings- is unsure if this was a hornet or wasp or bee. Patient not anticoagulated. Related Data Home Medications Medication Instructions Recorded Confirmed melatonin 3 mg disintegrating 9 mg (3 x 3 mg) PO HS #90 tabs 03/12/18 01/07/24 tablet trazodone 50 mg tablet 50 mg PO .HS 02/26/19 01/07/24 bupropion HCl 150 mg 24 hr tablet, 300 mg PO HS 11/25/19 01/07/24 extended release (Wellbutrin XL) fluticasone propionate 50 1 spray intranasal BID PRN 06/09/20 01/07/24 mcg/actuation nasal spray,suspension (Flonase Allergy Relief) ciclesonide 50 mcg nasal spray 2 spray intranasal DIRECTED 04/25/23 01/07/24 (Omnaris) lisdexamfetamine 40 mg capsule 40 mg PO DIRECTED 04/25/23 01/07/24 (Vyvanse) cholecalciferol (vitamin D3) 10 10 mcg PO DAILY 12/11/23 01/07/24 mcg (400 unit) capsule albuterol sulfate 90 mcg/actuation 2 inh inhalation Q4H PRN #1 ea 01/07/24 breath activated powder inhaler cetirizine 10 mg tablet 10 mg PO ONCE #10 tabs 01/07/24 epinephrine 0.3 mg/0.3 mL 0.3 mg (0.3 mL) IM ONCE #2 ea 01/07/24 injection, auto-injector famotidine 20 mg tablet 20 mg PO ONCE PRN allergic 01/07/24 reaction #10 tabs Previous Rx's Medication Instructions Recorded melatonin 3 mg disintegrating 9 mg (3 x 3 mg) PO HS #90 tabs 03/12/18 tablet albuterol sulfate 90 mcg/actuation 2 inh inhalation Q4H PRN #1 ea 01/07/24 breath activated powder inhaler cetirizine 10 mg tablet 10 mg PO ONCE #10 tabs 01/07/24 epinephrine 0.3 mg/0.3 mL 0.3 mg (0.3 mL) IM ONCE #2 ea 01/07/24 injection, auto-injector famotidine 20 mg tablet 20 mg PO ONCE PRN allergic 01/07/24 reaction #10 tabs Allergies Allergy/AdvReac Type Severity Reaction Status Date / Time Sulfa (Sulfonamide Allergy Severe SOB,rash Verified 01/07/24 18:48 Antibiotics) mold Allergy Headache Verified 01/07/24 18:48 bee venom protein (honey bee) AdvReac Severe Anaphylaxis Verified 01/07/24 18:48 aspirin AdvReac Intermediate Rash Verified 01/07/24 18:48 trees Allergy Other (See Uncoded 01/07/24 18:48 Comment) General Stated Complaint: Allergic DILCIA: 3 Review of Systems All systems reviewed & are unremarkable except as noted in HPI and below Exam Narrative Exam Narrative: GENERAL APPEARANCE: Well-nourished, non-toxic, awake and alert, atraumatic, no acute distress. SKIN: Warm, pink, dry, intact, without rashes/lesions/ulcerations - no swelling or hives/urticaria diffusely, no large swelling around sting fibre composite technician: Normocephalic, atraumatic, normal hair distribution for gender/age. EYES: Pupils PERRLA, EOMs intact without nystagmus, normal conjunctiva, no exuda dusty on lids/lashes. ENT: Nares patent, no circumoral cyanosis, no facial swelling, no tongue swelling, no lip swelling NECK: Supple, trachea midline, painless cervical ROM. LUNGS/CHEST: Lungs CTA bilaterally- no wheezing diffusely, non-labored respirations, normal A/P diameter, symmetrical expansion, no chest wall deformity HEART (CV/PV): Regular rate and rhythm without murmur, no peripheral edema, no JVD. ABDOMEN: Soft, non-distended, no guarding. MSK: Normal ROM, no swelling/deformity to bilateral UEs or LEs, moving all extremities without weakness, no cyanosis, spine midline without tenderness, normal curvature. NEURO: Mental Status AAOx4 - alert to person, place, time, events No facial droop, no forehead involvement. Motor: No focal weakness - strength 5/5 in bilateral UEs and LEs, proximal and distal, symmetric. Sensory: sensation intact to light touch globally. Gait normal: patient ambulated without ataxia into ED room. PSYCH: euthymic, cooperative, pleasant, appropriate speech Course Vital Signs Vital signs: Vital Signs Temperature 36.6 C 01/07/24 18:45 Pulse 74 01/07/24 18:45 Respiratory Rate 18 01/07/24 18:45 Blood Pressure 163/78 H 01/07/24 18:45 Pulse Oximetry 99 01/07/24 18:45 Temperature 36.6 C 01/07/24 18:45 Temperature Source Oral 01/07/24 18:45 Pulse 74 01/07/24 18:45 Respiratory Rate 18 01/07/24 18:45 Respiratory Effort Normal, Non-Labored 01/07/24 18:51 Respiratory Pattern Normal 01/07/24 18:51 Blood Pressure 163/78 H 01/07/24 18:45 Blood Pressure Position Sitting 01/07/24 18:45 Pulse Oximetry 99 01/07/24 18:45 Oxygen Delivery Method Room Air 01/07/24 18:45 Oxygen Flow Rate 0 01/07/24 18:45 Pain Level 2 01/07/24 18:45 Medical Decision Making This dictation utilizes knzau-ld-ghyi dictation software and may contain unedited grammatical errors. 53 year-old female presents to ED today by EMS with a chief complaint of possible allergic reaction to bee sting around 1400. Patient had gone to urgent care and was given 0.3mg Epi @ 1700. Quality described as states she had rash, felt nauseous, had a headache, denies shortness of breath at onset of bee sting, no radiation to diffuse hives on arrival, wheezing, tongue swelling, lip swelling, active vomiting. Severity is described as severe. Palliating factors include took 50mg Benadryl at onset of bee sting. Provoking factors include nothing specific. Events leading up to the incident/Associated Symptoms: Patient denies prior anaphylaxis to bee stings- is unsure if this was a hornet or wasp or bee. Patients' medical history: noncontributory. Family and social history: noncontributory. Pertinent exam findings / vital signs include no diffuse urticaria or hives on arrival, no wheezing, no significant swelling around the site of the sting at the hairline in the left parietal scalp, vital stable. Differential / pathologies of concern include allergic reaction, anaphylaxis. Diagnostic studies of: -None. Interventions of: -Given IV fluids, famotidine, cetirizine, 1 dose of Solu-Medrol, prescriptions for EpiPen, antihistamines and albuterol. ED Course/Assessment/Plan: 53-year-old female suffered a significant allergic reaction around 2 PM today and was given 1 dose of epinephrine at [facility] and brought to the ER by ambulance. She has never had an anaphylactic reaction to bee stings before, she is unsure whether this was a wasp or hornet or bee. She had no signs of any airway distress on arrival, I counseled her on early intervention of antihistamines, and prescription for epinephrine. I observed her for greater than 3.5 hours without any return of reaction after she received epinephrine, I stressed strict return criteria for any further concerns of developing rash, shortness of breath, wheezing, severe headache, nausea. Findings not consistent with progressing allergic reaction. Disposition of allergic reaction. Patient verbalized understanding of the plan and return to ED criteria and engaged in shared decision making. Medical Records Medical records reviewed: Yes I reviewed the patient's medical records. Quality:[facility] Related Social Needs: No Data to Display [facility] All Active Problems (Updated 01/07/24 @ 20:58 by CARYN Ley) Allergic reaction (Acute) ENT complaint (Acute) Allergic rhinitis with postnasal drip (Acute) Medical History (Updated 01/07/24 @ 20:58 by CARYN Ley) Chronic ethmoidal sinusitis Esophagitis, [place] grade A Hiatal hernia with GERD Chronic erosive gastritis Tendonitis of long head of biceps brachii of right shoulder HSV infection Significant anxiety around having HSV, worrying about spreading it to family members and doesn't want them to know she's positive. 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 Common bile duct dilatation Pulmonary nodules Incidental finding on 06/27/[address] carried out for CP and SOB; Radio logy recommends 1 year follow-up Heart palpitations 07/12/2018 [facility] licensed clinical social worker: normal with occ PVCs (also normal TSH) Family history of heart disease Temporomandibular joint dysfunction PTSD (post-traumatic stress disorder) (06/29/17) PHQ-9=23= severe depression RAJENDRA-7= 21= severe anxiety PCL-5=53= positive screen for PTSD Obsessive compulsive disorder (06/29/17) Mixed incontinence (02/23/14) improved s/p weight loss Invasive ductal carcinoma of breast, stage 1 2009. L breast lumpectomy/radiation. T1BN0. Neg sentinel node bx. s/p Tamoxifen x5yrs. Surgery and F/U mammograms at [facility]. Had negative genetic testing Insomnia (05/24/16) 08/27/18 appointment with [facility] RAJENDRA (generalized anxiety disorder) (06/29/17) Depression (04/19/16) 06/2017 Dr. Dent psych consult: feel depression more 2/2 to other psychiatric comorbidities (PTSD, ADHD, OCD, RAJENDRA) & life stressors Cervical neck pain with evidence of disc disease MRI C5-6 osteophyte prominence with ? disk involvement. s/p steroid inj x2 05/2015 and 06/2015. No surgery. Attention deficit hyperactivity disorder (ADHD) (06/29/17) Abnormal Pap smear of cervix (08/26/14) 2012 + HPV. 2013 and 2015 Nl. Plan q3yr Pap/HPV cotesting. Past history of heart murmur with Rx antibiotic/ not for ... Pt. states she had a murmur as a kid but does not as an adult Past history of depression following breast cancer diagno... Past history of Migraine without Auro / none for years Past history anemia / NL for years Surgical History History of esophagogastroduodenoscopy (EGD) (~03/11/21) History of colonoscopy (~03/11/21) cervical medial branch blocks (06/02/15) Dr Faustino Hardy C4-7 Ligation of fallopian tube 2002 EGD (08/17/16) Dr Peterson Colonoscopy - IV Sedation (04/22/15) ? 2009 [facility], 2014 Dr. Peterson neg Breast, Lumpectomy L breast partial lumpectomy. neg sentinel node bx. T1BN0. Family History Mother Breast cancer Had a lumpectomy but thinks it was benign. Uncertain as to details. 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
[2024-01-07] MEDS: ACETAMINOPHEN 1,000 MG/100 ML BTL 400 MG IVPB (19:05)
[2024-01-07] MEDS: methylPREDNISolone SUCC 125 MG VIAL IVP (19:05)
[2024-01-07] MEDS: Normal Saline 1,000 ML 1000 ML IV (19:05)
[2024-01-07] MEDS: Famotidine 20 MG/2 ML VIAL IVP (19:05)
== END 2024-01-07 21:11 | disposition home or self-care (01) ==
PROVIDERS: Emergency Provider Physician Assistant; PCP Physician Assistant
DX: R11.0 Nausea (principal); R51.9 Headache, unspecified; T63.441A Toxic effect of venom of bees, accidental (unintentional), initial encounter
CPT/HCPCS: 96365; 96375; 99284; 99283; J0131; J2919

== ENCOUNTER 2024-08-20 15:43 | Outpatient (CLI) | payer MEDICAID, SELFPAY ==
--- NOTE | 2024-08-20 10:15 | DI.RAD_ITS ---
Exam(s) XR HAND LT COMPLETE EXAM: XR HAND LT COMPLETE CLINICAL HISTORY: pain. TECHNIQUE: 2D digital imaging was performed. Three views. COMPARISON: No exams were available for comparison FINDINGS: BONES: No acute fracture is present. No bony destructive lesion is seen. JOINTS: No dislocation present. There are mild degenerative changes of the 1st carpal metacarpal dang int. Minimal degenerative changes are present of the interphalangeal joints of the fingers. SOFT TISSUE: Normal. IMPRESSION: Mild degenerative changes. DATA REPOSITORY: RADIATION DOSE DELIVERED:
== END 2024-08-20 15:44 | disposition home or self-care (01) ==
LOC: DIORS 15:44
PROVIDERS: PCP Physician Assistant; Visit Provider Physician Assistant
DX: M18.12 Unilateral primary osteoarthritis of first carpometacarpal joint, left hand (principal)
CPT/HCPCS: 73130

== ENCOUNTER 2024-09-02 09:22 | Day surgery (SDC) | payer MEDICAID, SELFPAY ==
--- NOTE | 2024-09-02 07:06 | W.PM.DSUDISC ---
Date of service: 09/02/24 Discharge Plan Disposition Patient Disposition: Home Condition: Stable Discharge Details Attending Provider: Noe Buchanan Primary Care Provider: Jason Elias Home Meds and New Rx's Prescriptions: Continued lisdexamfetamine [Vyvanse] 40 mg capsule 40 mg PO DIRECTED cholecalciferol (vitamin D3) 10 mcg (400 unit) capsule 10 mcg PO DAILY melatonin 3 mg tablet,disintegrating 9 mg PO HS Qty: 90 0RF fluticasone propionate [Flonase Allergy Relief] 50 mcg/actuation spray,suspension 1 spray JESSICA BID PRN trazodone 50 mg Tablet 50 mg PO .HS bupropion HCl [Wellbutrin XL] 150 mg tablet extended release 24 hr 300 mg PO HS Rx Instructions: to take with 300mg tab to total 450 mg daily. albuterol sulfate 90 mcg/actuation aerosol powdr breath activated 2 inh inhalation Q4H PRNQty: 1 0RF famotidine 20 mg tablet 20 mg PO ONCE PRN (Reason: allergic reaction) Qty: 10 0RF cetirizine 10 mg tablet 10 mg PO ONCE Qty: 10 0RF epinephrine 0.3 mg/0.3 mL auto-injector 0.3 mg IM ONCE Qty: 2 0RF Rx Instructions: as a single dose; may repeat once Discharge Instructions Additional Instructions: Surgery: Left thumb and ring finger trigger releases 09/02/23 Activity: Protect hand for a few weeks. Gently increase finger motion and hand gripping to prevent stiffness. Recommend elevation to minimize swelling and discomfort. Prescriptions: None Resume home medicines, use [id number] Tylenol (acetaminophen) as needed for mild pain and ibuprofen (Motrin) or naproxen (Aleve) as needed for moderate to severe pain and swelling. Dressings: Leave dressing in place for 3 days. May then remove and leave open to air or cover incision with Band-Aid. May get wet after 5 days. Follow-up: 10-[address] Buchanan Please call the office during business hours with any questions or concerns. Stand Alone Forms: Cristina Ann ([email or web address]) Referrals: Noe Buchanan MD [ [facility] STAFF PHYSICIAN] - 09/16/24 11:15 am Discharge Orders Discharge Orders: Discharge Order (Routine); Ordered 09/02/24 Ordered By: Stewart Arita DS: Diagnosis Discharge Diagnosis (1) Trigger ring finger of left hand: Status: Acute (2) Trigger thumb of left hand: Status: Acute
[2024-09-02 09:27] VITALS: BP 133/77; PULSE 88; RESP 16; TEMP 36.2; O2SAT 96
[2024-09-02] MEDS: Lidocaine 1% Multi-Dose W/EPI 1/100,000 50 ML VIAL (10:59)
[2024-09-02] MEDS: Sodium Bicarbonate 50 MEQ/50 ML VIAL (10:59)
[2024-09-02 11:28] VITALS: BP 119/76; PULSE 78; RESP 18; TEMP 36.6; O2SAT 99
--- NOTE | 2024-09-02 11:33 | ROE_ITS ---
Operative Note Operative Note PRE-OP DIAGNOSIS: 1. Left thumb trigger finger 2. Left ring finger trigger finger PROCEDURE: 1. Left thumb trigger release, CPT# 33890 1. Left ring finger finger trigger release, CPT# 08246 SURGEON: Noe Buchanan NURSING INFORMATICS ANALYST: None None ANESTHESIA TYPE: Local By Surgeon Refer to Anesthesia Record ESTIMATED BLOOD LOSS: 1 TOURNIQUET TIME: 0 COMPLICATIONS: None Patient was transported to: same day Patient's condition: stable Indications: Please see complete medical record for details. Procedure Description: In the operating room, the patient was positioned supine on the stretcher. All bony prominences were padded. Preoperative antibiotics were omitted. The correct patient, procedure, and side of the procedure were all verified prior to beginning. Local anesthesia was induced about the thumb and ring finger sites with 10cc of 1% lidocaine containing epinephrine buffered with 1 cc of sodium bicarbonate. The Left hand was prepped and draped in the usual sterile fashion. Proper analgesia was confirmed. A small transverse approach was made overlying the thumb MCP joint. Soft tissues were swept to the sides including sensory ne rve retracted to expose the A1 alexandra. The release was started centrally with a knife and completed at the proximal and distal margins with tenotomy scissors. Care was taken to protect the flexor tendons. The tendons were inspected and had mild fraying, which was trimmed. Appropriate flexor tendon excursion was confirmed. The patient readily demonstrated full range of motion of the thumb without triggering. A small volar longitudinal approach was made overlying the ring finger MCP joint. Soft tissues were swept to the sides and retracted to expose the A1 alexandra. The release was started centrally with a knife and completed at the proximal and distal margins with tenotomy scissors. Care was taken to protect the flexor tendons. The tendons were inspected and intact. Appropriate flexor tendon excursion was confirmed. The patient readily demonstrated full range of motion of the finger without triggering. The small incisions were irrigated and then dried. Hemostasis was appropriate. The incisions were closed using 3-0 nylon in a horizontal mattress fashion. Xeroform was applied followed by gauze and the hand was gently compressed with an Donald bandage. The patient tolerated local anesthesia without complication and was transferred out of the operating room in a stable condition. Date of Procedure: 09/02/24
== END 2024-09-02 11:49 | disposition home or self-care (01) ==
LOC: SUR 09:22
PROVIDERS: PCP Physician Assistant; Visit Provider Student in an Organized Health Care Education/Training Program
PROC: (CPT 26055; principal; 2024-09-02 09:15)
DX: M65.342 Trigger finger, left ring finger (principal); M65.312 Trigger thumb, left thumb
CPT/HCPCS: 26055 ×2; J2004

== ENCOUNTER 2025-02-28 19:42 | Emergency (ER) | payer MEDICAID, SELFPAY ==
[2025-02-28] VITALS (11 sets, daily range): BP systolic 132–159; BP diastolic 69–82; PULSE 90–118; RESP 18; TEMP 37.1; O2SAT 85–100
--- NOTE | 2025-02-28 19:49 | W.ED.GENAD ---
Discharge Plan Disposition Patient Disposition: Home Discharge Details Clinical Impression: Bee sting Primary Care Provider: Jason Elias ED Provider: Blaze Obando Home Meds and New Rx's Prescriptions: No Action lisdexamfetamine [Vyvanse] 40 mg capsule 40 mg PO DIRECTED loratadine 10 mg tablet 10 mg PO DAILY PRN fluticasone propionate [Flonase Allergy Relief] 50 mcg/actuation spray,suspension 1 spray JESSICA BID PRN trazodone 50 mg tablet 150 mg PO .HS bupropion HCl [Wellbutrin XL] 150 mg tablet extended release 24 hr 300 mg PO HS Rx Instructions: to take with 300mg tab to total 450 mg daily. albuterol sulfate 90 mcg/actuation aerosol powdr breath activated 2 inh inhalation Q4H PRNQty: 1 0RF famotidine 20 mg tablet 20 mg PO ONCE PRN (Reason: allergic reaction) Qty: 10 0RF epinephrine 0.3 mg/0.3 mL auto-injector 0.3 mg IM ONCE Qty: 2 0RF Rx Instructions: as a single dose; may repeat once cyclobenzaprine 5 mg tablet 5 mg PO DAILY Discharge Instructions Instructions: Insect Bites and Stings ED Additional Instructions: Please follow-up with your primary care provider regarding your visit to the emergency department today. Be sure to discuss results of all test performed here today to include radiology, and laboratory testing as well as results for any pending cultures. Should your symptoms worsen, or if you develop new concerning symptoms such as vomiting, diarrhea, wheezing, difficulty breathing or swelling of your throat or oral cavity please return immediately emergency department for further evaluation. HPI General Date/Time Provider Initiated Documentation: 02/28/25 19:49. HPI Narrative: MDM/Narrative: 54-year-old female presents for allergic reaction. Patient recounts a story for which she was told she had an anaphylactic reaction to bee sting previously, however based on her description of the events it does not sound like she has a true anaphylactic allergy. Regardless on examination she does have evidence of hives on the right forearm, initial time evaluation patient has no other signs of anaphylaxis including normal respiratory rate, normal breath sounds, no oral pharyngeal swelling, no vomiting, no diarrhea, no hypotension. Patient self medicated with Benadryl and famotidine prior to arrival, as such we will treat with Solu-Medrol 125 mg IV, as well as Tylenol and ibuprofen for pain control. Will monitor patient to ensure no anaphylaxis is occurring. 20:40 On reassessment, patient is resting comfortably. Patient is no longer tachycardic, has clear breath sounds, no evidence of oropharyngeal swelling on examination has not been having any vomiting or diarrhea. Plan of care discussed with patient and family who request to remain under observation for short period longer to ensure no progression given her prior diagnosis of anaphylaxis. Will continue to monitor and suspect will be able to discharge within 1 to 2 hours. 21:05 Patient states that she feels ready to leave. She is still has a normal physical exam outside of urticaria. Patient discharged with instruction to use EpiPen should she develop signs of anaphylaxis. Disposition: Home HPI: 54-year-old female presents for evaluation of allergic reaction. Patient notes a history of reported anaphylaxis to bee stings in the past, although she describes a situation in which she was stung on the forehead, developed hives, and felt as if her throat was tightening up and was given epinephrine in urgent care. She notes that she did not have any vomiting, worsening rash, worsening respiratory distress at that time. Today she reports she was working in her lawn, mowing high grass when she was suddenly stung 4 times on the right forearm and right flank. Denies any other symptoms besides pain to the areas in which she was stung. ROS: Negative besides as mentioned above Exam: Gen: A&O NAD HEENT: NCAT, EOMI, not icteric. External ears normal. No rhinorrhea. Moist mucous membranes. Neck: Supple, full range of motion, no observable masses, No meningeal sign. Lungs: No Respiratory distress. CV: RRR, no edema. Abdomen: Soft, nondistended, No rebound tenderness. MSK: No joint swelling, no redness. Skin: Urticaria over the right anterior forearm and right flank. No petechiae, lesions. Normal color per patient. Neuro: Normal Gait, Grossly intact. Psych: Appropriate for situation. Related Data Home Medications ?Medication ?Instructions ?Recorded ?Confirmed bupropion HCl 150 mg 24 hr tablet, 300 mg PO HS 11/25/19 02/28/25 extended release (Wellbutrin XL) fluticasone propionate 50 1 spray intranasal BID PRN 06/09/20 02/28/25 mcg/actuation nasal spray,suspension (Flonase Allergy Relief) lisdexamfetamine 40 mg capsule 40 mg PO DIRECTED 04/25/23 02/28/25 (Vyvanse) albuterol sulfate 90 mcg/actuation 2 inh inhalation Q4H PRN #1 toña 01/07/24 02/28/25 breath activated powder inhaler epinephrine 0.3 mg/0.3 mL 0.3 mg (0.3 mL) IM ONCE #2 toña 01/07/24 02/28/25 injection, auto-injector famotidine 20 mg tablet 20 mg PO ONCE PRN allergic 01/07/24 02/28/25 reaction #10 tabs loratadine 10 mg tablet 10 mg PO DAILY PRN 12/25/24 02/28/25 trazodone 50 mg tablet 150 mg PO .HS 12/25/24 02/28/25 cyclobenzaprine 5 mg tablet 5 mg PO DAILY 02/28/25 02/28/25 Previous Rx's ?Medication ?Instructions ?Recorded albuterol sulfate 90 mcg/actuation 2 inh inhalation Q4H PRN #1 toña 01/07/24 breath activated powder inhaler epinephrine 0.3 mg/0.3 mL 0.3 mg (0.3 mL) IM ONCE #2 toña 01/07/24 injection, auto-injector famotidine 20 mg tablet 20 mg PO ONCE PRN allergic 01/07/24 reaction #10 tabs Allergies Allergy/AdvReac Type Severity Reaction Status Date / Time Sulfa (Sulfonamide Allergy Severe SOB,rash Verified 02/28/25 19:51 Antibiotics) mold Allergy Headache Verified 02/28/25 19:51 bee venom protein (honey bee) AdvReac Severe Anaphylaxis Verified 02/28/25 19:51 aspirin AdvReac Intermediate Rash Verified 02/28/25 19:51 trees Allergy Other (See Uncoded 02/28/25 19:51 Comment) General Stated Complaint: Allergic DILCIA: 3 Course Vital Signs Vital signs: Vital Signs Temperature 37.1 C 02/28/25 19:45 Pulse 118 H 02/28/25 19:45 Respiratory Rate 18 02/28/25 19:45 Blood Pressure 159/80 H 02/28/25 19:45 Pulse Oximetry 99 02/28/25 19:45 Temperature 37.1 C 02/28/25 19:45 Temperature Source Oral 02/28/25 19:45 Pulse 118 H 02/28/25 19:45 Respiratory Rate 18 02/28/25 19:45 Blood Pressure 159/80 H 02/28/25 19:45 Pulse Oximetry 99 02/28/25 19:45 Oxygen Delivery Method Room Air 02/28/25 19:45 Oxygen Flow Rate 0 02/28/25 19:45 Pain Level 6 02/28/25 19:45 PFSH All Active Problems (Updated 02/28/25 @ 21:07 by Blaze Obando MD) Bee sting (Acute) Radial sensory nerve injury (Acute) Trigger finger, right middle finger (Acute) Arthritis of carpometacarpal (CMC) joint of left thumb (Acute) POCUS injection: 12/15/24 Trigger ring finger of left hand (Acute) Trigger thumb of left hand (Acute) s/p Left thumb and ring finger trigger releases 09/02/23 Thumb pain (Acute) ENT complaint (Acute) Allergic rhinitis with postnasal drip (Acute) Medical History Chronic ethmoidal sinusitis Esophagitis, [place] grade A Hiatal hernia with GERD Chronic erosive gastritis Tendonitis of long head of biceps brachii of right shoulder HSV infection Significant anxiety around having HSV, worrying about spreading it to family members and doesn't want them to know she's positive. 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's 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 Common bile duct dilatation Pulmonary nodules Incidental finding on 06/27/[address] carried out for CP and SOB; Radiology recommends 1 year follow-up Heart palpitations 07/12/2018 [employer] lunchroom monitor: normal with occ PVCs (also normal TSH) Family history of heart disease Temporomandibular joint dysfunction PTSD (post-traumatic stress disorder) (06/29/17) PHQ-9=23= severe depression RAJENDRA-7= 21= severe anxiety PCL-5=53= positive screen for PTSD Obsessive compulsive disorder (06/29/17) Mixed incontinence (02/23/14) improved s/p weight loss Invasive ductal carcinoma of breast, stage 1 2009. L breast lumpectomy/radiation. T1BN0. Neg sentinel node bx. s/p Tamoxifen x5yrs. Surgery and F/U mammograms at [facility]. Had negative genetic testing Insomnia (05/24/16) 08/27/18 appointment with [facility] RAJENDRA (generalized anxiety disorder) (06/29/17) Depression (04/19/16) 06/2017 Dr. Dent psych consult: feel depression more 2/2 to other psychiatric comorbidities (PTSD, ADHD, OCD, RAJENDRA) & life stressors Cervical neck pain with evidence of disc disease MRI C5-6 osteophyte prominence with ? disk involvement. s/p steroid inj x2 05/2015 and 06/2015. No surgery. Attention deficit hyperactivity disorder (ADHD) (06/29/17) Abnormal Pap smear of cervix (08/26/14) 2012 + HPV. 2013 and 2014 Nl. Plan q3yr Pap/HPV cotesting. Past history of heart murmur with Rx antibiotic/ not for ... Pt. states she had a murmur as a kid but does not as an adult Past history of depression following breast cancer diagno... Past history of Migraine without Auro / none for years Past history anemia / NL for years Surgical History History of esophagogastroduodenoscopy (EGD) (~03/11/21) History of colonoscopy (~03/11/21) cervical medial branch blocks (06/02/15) Dr Faustino Hardy C4-7 Ligation of fallopian tube 2002 EGD (08/17/16) Dr Peterson Colonoscopy - IV Sedation (04/22/15) ? 2009 FA, 2014 Dr. Peterson neg Breast, Lumpectomy L breast partial lumpectomy. neg sentinel node bx. T1BN0. Family History Mother Breast cancer Had a lumpectomy but thinks it was benign. Uncertain as to details. 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
[2025-02-28] MEDS: methylPREDNISolone SUCC 125 MG VIAL IVP (19:57)
[2025-02-28] MEDS: Ibuprofen 600 MG TAB PO (19:57)
[2025-02-28] MEDS: Acetaminophen 500 MG TAB 1000 MG PO (19:58)
[2025-02-28] MEDS: Normal Saline 1,000 ML 1000 ML IV (20:09)
== END 2025-02-28 21:13 | disposition home or self-care (01) ==
PROVIDERS: Emergency Provider General Practice; PCP Physician Assistant
DX: T63.441A Toxic effect of venom of bees, accidental (unintentional), initial encounter (principal)
CPT/HCPCS: 99284; 99283; 96374; 96361; J2919

== ENCOUNTER 2025-03-13 10:17 | Emergency (ER) | payer MEDICAID, SELFPAY ==
[2025-03-13] VITALS (44 sets, daily range): BP systolic 116–144; BP diastolic 69–85; PULSE 72–89; RESP 9–21; TEMP 36.8; O2SAT 92–100
--- NOTE | 2025-03-13 10:15 | RT.EKG_ITS ---
APPROVED REPORT Exam: Resting ECG Reason for Exam: Patient Location: E HR:91 bpm ECG Measurements Heart Rate 91 AXIS MD 129 P 68 QRSd 95 QRS 72 QT 361 T 59 QTc 444 Conclusion Sinus rhythm...normal P axis, V-rate 60- 99
--- NOTE | 2025-03-13 10:38 | ED.GENADUL_ITS ---
Discharge Plan Disposition Patient Disposition: Home Discharge Details Clinical Impression: Acute epigastric pain, Right-sided chest pain Primary Care Provider: Jason Elias ED Provider: Yuko Daly Home Meds and New Rx's Prescriptions: New omeprazole 20 mg capsule,delayed release(DR/EC) 20 mg PO DAILY Qty: 14 0RF No Action lisdexamfetamine [Vyvanse] 40 mg capsule 40 mg PO DIRECTED loratadine 10 mg tablet 10 mg PO DAILY PRN fluticasone propionate [Flonase Allergy Relief] 50 mcg/actuation spray,suspension 1 spray JESSICA BID PRN trazodone 50 mg tablet 150 mg PO .HS bupropion HCl [Wellbutrin XL] 150 mg tablet extended release 24 hr 300 mg PO HS Rx Instructions: to take with 300mg tab to total 450 mg daily. albuterol sulfate 90 mcg/actuation aerosol powdr breath activated 2 inh inhalation Q4H PRNQty: 1 0RF famotidine 20 mg tablet 20 mg PO ONCE PRN (Reason: allergic reaction) Qty: 10 0RF epinephrine 0.3 mg/0.3 mL auto-injector 0.3 mg IM ONCE Qty: 2 0RF Rx Instructions: as a single dose; may repeat once cyclobenzaprine 5 mg tablet 5 mg PO DAILY Discharge Instructions Additional Instructions: Please call your primary care provider first thing Sunday morning to schedule follow-up appointment. As you have a history of ulcers, I will prescribe you a limited course of omeprazole, but I recommend that you discuss with your PCP having the testing done for H. pylori. Your workup today was very reassuring. If symptoms persist, further evaluation outpatient may be indicated. I recommend that you try to avoid eating in the 2 hours before bedtime and you may find that sleeping with the head of your bed propped up may help with acid reflux symptoms. Your right sided chest discomfort responded well to a lidocaine patch; may continue using these as needed for muscle soreness; use according to package instructions. Muscle aches you may also use Tylenol and Voltaren gel if you are able to tolerate this (some people are very sensitive, but others find it is more gentle on their stomach so than oral NSAIDs) Return to emergency care if develop new chest pain, difficulty breathing, feel l angelique you are going to pass out, blood in your stool or emesis, inability to hold down food or fluids, or if you are very worried and need to be rechecked again immediately. Referrals: Jason Elias [Primary Care Provider, Medicine] Discharge Data Discharge Date/Time-TO BE ENTERED AT DEPARTURE: 03/13/25 15:44 HPI <Yuko Goodwin - Last Filed: 03/13/25 16:06> General Date/Time Provider Initiated Documentation: 03/13/25 10:28 . HPI Narrative: Maite is a 54-year-old female who presents to the emergency department today for evaluation of epigastric pain with nausea and bloating. She reports symptoms started a couple of days ago. Pain is currently mild, says that she came in because the pain last night was bad. Intermittent epigastric pain for 3 years attributed to ulcer, flared up a few days ago. Pain is dull, cramping at night, accompanied by heartburn, dry mouth, and nausea, but no vomiting. Eating and drinking cause discomfort, but pain is worse at night with cramping pain that keeps her up trying to sleep. Denies recent fever/chills, radiation of pain, recent illness such as congestion/sore throat/chest pain, decreased p.o. intake change in bowel or bladder function,blood in stool or urine, pedal edema. She has been using Tums, no other antacids. She does admit that she has recently been working on a rock wall, has had some intermittent aching discomfort across her chest and shoulder blades. No other associated symptoms with chest/shoulder blade discomfort or radiation of pain. Has been taking Advil for muscle aches, thinks this may be contributory to symptoms. PMH significant for allergies, hiatal hernia, heart murmur (resolved after childhood) and breast cancer (L side, in remission). Does not smoke or drink alcohol regularly. PAST SURGICAL HISTORY: Tubal ligation Related Data Home Medications ?Medication ?Instructions ?Recorded ?Confirmed bupropion HCl 150 mg 24 hr tablet, 300 mg PO HS 03/13/25 extended release (Wellbutrin XL) fluticasone propionate 50 1 spray intranasal BID PRN 1 08/10/19 03/13/25 mcg/actuation nasal spray,suspension (Flonase Allergy Relief) lisdexamfetamine 40 mg capsule 40 mg PO DIRECTED 03/13/25 (Vyvanse) albuterol sulfate 90 mcg/actuation 2 inh inhalation Q4 H PRN #1 ea 01/07/24 03/13/25 breath activated powder inhaler epinephrine 0.3 mg/0.3 mL 0.3 mg (0.3 mL) IM ONCE #2 e a 01/07/24 03/13/25 injection, auto-injector famotidine 20 mg tablet 20 mg PO ONCE PRN allergic 0 01/07/24 03/13/25 reaction #10 tabs loratadine 10 mg tablet 10 mg PO DAILY PRN 12/25/24 03/13/25 trazodone 50 mg tablet 150 mg PO .HS 12/25/2403/13 cyclobenzaprine 5 mg tablet 5 mg PO DAILY 02/28/2511/30 omeprazole 20 mg capsule,delayed 20 mg PO DAILY #14 ca ps 03/13/25 release Previous Rx's ?Medication ?Instructions ?Recorded albuterol sulfate 90 mcg/actuation 2 inh inhalation Q4 H PRN #1 ea 01/07/24 breath activated powder inhaler epinephrine 0.3 mg/0.3 mL 0.3 mg (0.3 mL) IM ONCE #2 e a 01/07/24 injection, auto-injector famotidine 20 mg tablet 20 mg PO ONCE PRN allergic 0 01/07/24 reaction #10 tabs omeprazole 20 mg capsule,delayed 20 mg PO DAILY #14 ca ps 03/13/25 release Allergies Allergy/AdvReac Type Severity Reaction Status Date / Time Sulfa (Sulfonamide Allergy Severe SOB,rash Verified 03/13/25 10:26 Antibiotics) mold Allergy Headache Verified 03/13/25 10:26 bee venom protein (honey bee) AdvReac Severe Anaphylaxis Verified 03/13/25 10:26 aspirin AdvReac Intermediate Rash Verified 03/13/25 10:26 trees Allergy Other (See Uncoded 03/13/25 10:26 Comment) General Stated Complaint: Abd Prob DILCIA: 3 Exam <Yuko Fernandes Buddy - Last Filed: 03/13/25 16:06> Narrative Exam Narrative: General Appearance: Normal. Patient is alert and oriented, no acute distress Vital signs: Within normal limits, no tachycardia or fever. Respiratory: Breath sounds clear bilaterally. Easy work of breathing. Cardiovascular: Regular rate and rhythm, normal heart sounds. Gastrointestinal: Generalized abdominal tenderness is noted on palpation, no abdominal guarding/rigidity or pulsatile masses. Normoactive bowel sounds x 4. Skin: Warm and dry, no rash. Psychiatric: Normal. Course <Yuko Lopez Last Filed: 03/13/25 16:06> Vital Signs Vital signs: Vital Signs Temperature 36.8 C 03/13/25 10:24 Pulse 86 03/13/25 10:24 Respiratory Rate 14 03/13/25 10:24 Blood Pressure 132/82 03/13/25 10:24 Pulse Oximetry 97 03/13/25 10:24 Temperature 36.8 C 03/13/25 10:24 Temperature Source Oral 03/13/25 10:24 Pulse 86 03/13/25 10:24 Respiratory Rate 14 03/13/25 10:24 Blood Pressure 132/82 03/13/25 10:24 Blood Pressure Position Sitting 03/13/25 10:24 Pulse Oximetry 97 03/13/25 10:24 Oxygen Delivery Method Room Air 03/13/25 10:24 Oxygen Flow Rate 0 03/13/25 10:24 Pain Level 3 03/13/25 10:24 Medical Decision Making <Yuko Goodwin - Last Filed: 03/13/25 16:06> Initial Assessment: 54-year-old female with severe epigastric pain and heartburn over the last few days. Reports dull chest pain and shoulder blade discomfort over the past few weeks. Differential Diagnosis: GERD, PUD, gastritis, gallbladder disease/cholecystitis/choledocholithiasis, colitis, UTI/pyelonephritis. Low suspicion for ACS based on history and presentation, heart score 2, indicating low risk of Mace. ED Course: - test ordered - CT scan ordered - EKG reviewed I independently interpreted the following tests: EKG shows normal sinus rhythm, rate 91, no changes consistent with acute ischemia, normal intervals. CBC, CMP, lipase, UA all reassuring. Alk phos slightly elevated at 123 with no other LFT elevations. Troponin flat at 5 and 6. 1200: Maite reports R sided CP rated 7/10 radiating up to R shoulder, worsened with inspiration. DDx includes but is not limited to: ACS, muscle spasm, anxiety, pneumonia, PE. Rpt EKG performed, no change from previous (NSR, rate 79, no changes c/w ischemia). Negative Soliz's sign. POCUS of gallbladder performed, no obvious gallstones or gb wall thickening. VS reassuring, no tachycardia. O2 sat briefly noted at 92% on RA (had been 97% at arrival), this did quickly resolve and O2 return to high 90s. D-dimer performed, was noted to be elevated. CTA of chest was ordered, no acute abnormalities noted. 1 L IV fluids given after contrast. While waiting for diagnostic lidocaine patch applied, patient reported good improvement of symptoms after lidocaine patch. Maite was able to drink marlyn lucia and eat crackers prior to discharge. Overall workup today very reassuring. Unclear etiology of epigastric pain, though possibly related to gastritis/peptic ulcer disease. Right-sided chest pain did improve with lidocaine patch, possibly related to musculoskeletal pain. Further evaluation with outpatient workup warranted for both concerns. Clinical Impression: - Epigastric pain -R sided chest discomfort Disposition: - Discharge: Home. Reviewed discharge instructions with patient, including use of PPI for limited course, use of lidocaine patches/muscle rubs, and red flags indicate need for return to emergency care. Recommend close follow-up with PCP for further evaluation/management. She voices agreement with plan of care Patient consented to the use of [facility] Imaging Data Radiologic Study: Radiologist's impression: Exam(s) CT CHEST PE CTA EXAM: CT CHEST PE CTA CLINICAL HISTORY: R sided CP. TECHNIQUE: Imaging Protocol: Axial CT angiography was performed with multi- slice acquisition and multi-planar reconstructions as well as axial, coronal and sagittal MIP reconstructions. Computer aided detection (CAD) was utilized. CONTRAST MATERIAL: Intravenous: Omnipaque 350 Contrast volume:100 ml COMPARISON: CT CT CHEST WO from 11/04/2020 FINDINGS: Pulmonary Arteries: No evidence of filling defect to suggest pulmonary emboli. Mediastinum and Deedee: No dominant adenopathy or fluid collection. Pulmonary parenchyma: Not well evaluated due to expiratory changes. No consolidation or dominant measurable mass. Pleura: No effusion or pneumothorax. Heart: The heart is not dilated. No coronary artery calcifications are seen. Aorta: Thoracic aorta non-dilated. No dissection. Upper abdomen: No acute findings. Bones: Unremarkable for age. Tubes, Catheters, and Lines: None Soft tissues: Unremarkable. IMPRESSION: No evidence of pulmonary embolism or other acute abnormality. Radiologic Study #2: Radiologist's impression: Exam(s) CT ABDOMEN PELVIS W EXAM: CT ABDOMEN PELVIS W CLINICAL HISTORY: epigastric pain, h/o hiatal hernia. TECHNIQUE: Imaging Protocol: Axial computed tomography images with coronal and sagittal reformatted images were created and reviewed CONTRAST MATERIAL: Intravenous: Omnipaque 350 Contrast volume:75 ml Oral: no COMPARISON: CT CT chest PE CTA from 06/27/2018 FINDINGS: ABDOMEN and PELVIS: Lung Bases: No acute findings. Liver: Normal density. No suspicious mass. Gallbladder and biliary tract: No radiodense calculus. No wall thickening or pericholecystic fluid. No biliary dilation. Pancreas: Normal density. No abnormal calcifications or inflammatory process. No evidence of mass. Spleen: Normal. Kidneys: Normal size, contour and axis. No radiodense stones. No obstructive uropathy. No suspicious masses seen. Adrenal glands: No masses seen. Vasculature: Abdominal aorta non-dilated. Soft tissues: Unremarkable. Bladder: Nearly empty but unremarkable. Bowel: No evidence of hiatal hernia. The stomach is empty but unremarkable. No obstruction. No bowel wall thickening. Appendix normal. Normal quantity of stool. Peritoneal cavity: No ascites. No focal collection. No mesenteric inflammatory response. No free air. Bones: Unremarkable degenerative disc changes at L5-S1. Reproductive organs: Retroverted uterus with small uterine fibroids. Lymph nodes: No pathologically enlarged lymph nodes. IMPRESSION:: No acute abnormality in the abdomen or pelvis. [facility] <Yuko Goodwin - Last Filed: 03/13/25 16:06> All Active Problems (Updated 03/13/25 @ 15:12 by Yuko Goodwin) Right-sided chest pain (Acute) Acute epigastric pain (Acute) Bee sting (Acute) Radial sensory nerve injury (Acute) Trigger finger, right middle finger (Acute) Arthritis of carpometacarpal (CMC) joint of left thumb (Acute) POCUS injection: 12/15/24 Trigger ring finger of left hand (Acute) Trigger thumb of left hand (Acute) s/p Left thumb and ring finger trigger releases 09/02/23 Thumb pain (Acute) ENT complaint (Acute) Allergic rhinitis with postnasal drip (Acute) Medical History Chronic ethmoidal sinusitis Esophagitis, [place] grade A Hiatal hernia with GERD Chronic erosive gastritis Tendonitis of long head of biceps brachii of right shoulder HSV infection Significant anxiety around having HSV, worrying about spreading it to family members and doesn't want them to know she's positive. Asymptomatic, Positive HSV 1 and 2 antibodies January 2020 Arthritis of right acromioclavicular joint Arthritis of left acromioclavicular joint Tendinitis of long head of biceps brachii of left shoulder Trigger middle finger of left hand Impingement syndrome of right shoulder Impingement syndrome of left shoulder Biceps tendinitis of left upper extremity Left rotator cuff tear Bursitis of left shoulder Bursitis of right shoulder Sleep disorder Major depression Hypertrophy of inferior nasal turbinate Nasal valve collapse Deviated nasal septum Fibromyalgia Allergic rhinitis Scooping Machine Tender's nodule Common bile duct dilatation Pulmonary nodules Incidental finding on 06/27/[address] carried out for CP and SOB; Radiology recommends 1 year follow-up Heart palpitations 07/12/2018 Zio Patch telemetry monitor: normal with occ PVCs (also normal TSH) Family history of heart disease Temporomandibular joint dysfunction PTSD (post-traumatic stress disorder) (06/29/17) PHQ-9=23= severe depression RAJENDRA-7= 21= severe anxiety PCL-5=53= positive screen for PTSD Obsessive compulsive disorder (06/29/17) Mixed incontinence (02/23/14) improved s/p weight loss Invasive ductal carcinoma of breast, stage 1 2009. L breast lumpectomy/radiation. T1BN0. Neg sentinel node bx. s/p Tamoxifen x5yrs. Surgery and F/U mammograms at [facility]. Had negative genetic testing Insomnia (05/24/16) 08/27/18 appointment with [facility] RAJENDRA (generalized anxiety disorder) (06/29/17) Depression (04/19/16) 06/2017 Dr. Dent psych consult: feel depression more 2/2 to other psychiatric comorbidities (PTSD, ADHD, OCD, RAJENDRA) & life stressors Cervical neck pain with evidence of disc disease MRI C5-6 osteophyte prominence with ? disk involvement. s/p steroid inj x2 05/2015 and 06/2015. No surgery. Attention deficit hyperactivity disorder (ADHD) (06/29/17) Abnormal Pap smear of cervix (08/26/14) 2012 + HPV. 2013 and 2014 Nl. Plan q3yr Pap/HPV cotesting. Past history of heart murmur with Rx antibiotic/ not for ... Pt. states she had a murmur as a kid but does not as an adult Past history of depression following breast cancer diagno... Past history of Migraine without Auro / none for years Past history anemia / NL for years Surgical History History of esophagogastroduodenoscopy (EGD) (~03/11/21) History of colonoscopy (~03/11/21) cervical medial branch blocks (06/02/15) Dr Faustino Hrady C4-7 Ligation of fallopian tube 2002 EGD (08/17/16) Dr Peterson Colonoscopy - IV Sedation (04/22/15) ? 2009 [facility], 2014 Dr. Peterson neg Breast, Lumpectomy L breast partial lumpectomy. neg sentinel node bx. T1BN0. Family History Mother Breast cancer Had a lumpectomy but thinks it was benign. Uncertain as to details. 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 Current gender identity: female What type of physical activity do you participate in: walking and aerobic Duration: 15-30 minutes/day Frequency: daily Seatbelt use: always Working smoke detector in home: Yes Carbon monox detector in home: Yes Firearms in home: No Do you feel safe at home: Yes Do you feel safe in your relationship?: Yes Female Reproductive History Menstrual control method: permanent sterilization History History Para 2 Hx # Term Pregnancies Multiple births Hx # Pregnancies Ectopic pregnancies AB induced Hx Number of Living Children 2 AB spontaneous POCUS Exam (ED) <Con Tovar MD - Last Filed: 09/12/25 09:11> Limited Gallbladder Exam DATE OF EXAM: 03/13/25 TIME OF EXAM: 14:00 PROVIDER THAT PERFORMED THE STUDY: Con Tovar IS THIS A REPEAT EXAM DURING THIS ENCOUNTER: No REASON FOR VISIT: RUQ pain VISUALIZED STRUCTURES: Gallbladder PERTINENT FINDINGS/IMPRESSION: No Cholecystitis, No Cholelithiasis, No gallstones and No thickening of the gallbladder wall Exam complete
--- NOTE | 2025-03-13 10:45 | DI.CT_ITS ---
Exam(s) CT ABDOMEN PELVIS W EXAM: CT ABDOMEN PELVIS W CLINICAL HISTORY: epigastric pain, h/o hiatal hernia. TECHNIQUE: Imaging Protocol: Axial computed tomography images with coronal and sagittal reformatted images were created and reviewed CONTRAST MATERIAL: Intravenous: Omnipaque 350 Contrast volume:75 ml Oral: no COMPARISON: CT CT chest PE CTA from 06/27/2018 FINDINGS: ABDOMEN and PELVIS: Lung Bases: No acute findings. Liver: Normal density. No suspicious mass. Gallbladder and biliary tract: No radiodense calculus. No wall thickening or pericholecystic fluid. No biliary dilation. Pancreas: Normal density. No abnormal calcifications or inflammatory process. No evidence of mass. Spleen: Normal. Kidneys: Normal size, contour and axis. No radiodense stones. No obstructive uropathy. No suspicious masses seen. Adrenal glands: No masses seen. Vasculature: Abdominal aorta non-dilated. Soft tissues: Unremarkable. Bladder: Nearly empty but unremarkable. Bowel: No evidence of hiatal hernia. The stomach is empty but unremarkable. No obstruction. No bowel wall thickening. Appendix normal. Normal quantity of stool. Peritoneal cavity: No ascites. No focal collection. No mesenteric inflammatory response. No free air. Bones: Unremarkable degenerative disc changes at L5-S1. Reproductive organs: Retroverted uterus with small uterine fibroids. Lymph nodes: No pathologically enlarged lymph nodes. IMPRESSION:: No acute abnormality in the abdomen or pelvis. RADIATION DOSE DELIVERED: 667.48mGy.cm Total DLP DATA REPOSITORY: All CT scans at this facility are submitted to the National Radiology Data Registry (NRDR) Dose Index Registry (DIR) with the [employer] (A[employer]). RADIATION OPTIMIZATION: All CT scans at this facility use at least one of these dose optimization techniques: automated exposure control; mA and/or kV adjustment per patient size (includes targeted exams where dose is matched to clinical indication); or iterative reconstruction.
[2025-03-13 10:47] LABS: Abs Immature Grans 0.02 10^3/uL (0.0-0.06); HCT 44.6 % (36.0-46.0); HGB 14.3 g/dL (11.2-15.7); Immature Grans % 0.4 %; MCH 28.4 pg (27.0-33.0); MCHC 32.1 % (32.0-36.0); MCV 89 fL (80-95); MPV 9.7 fL (8.0-11.0); Platelet Count 230 10^3/uL (130-400); RBC 5.03 10^6/uL (3.93-5.22); RDW 13.2 % (11.7-14.6); RDW-SD 42.7 fL; WBC 5.24 10^3/uL (4.4-10.8)
[2025-03-13 11:42] LABS: ALT 25 U/L (14-59); AST 16 U/L (15-37); Albumin 3.5 g/dL (3.4-5.0); Alkaline Phosphatase 123 U/L (46-116); Anion Gap 6.7 mmol/L (3-11); BUN 9 mg/dL (7-18); Bilirubin, Total 0.2 mg/dL (0.2-1.0); CO2 29.3 mmol/L (21.0-32.0); Calcium 8.9 mg/dL (8.5-10.1); Chloride 105 mmol/L (98-107); Estimated GFR 67.36 (mL/min/1.73m2); Glucose 99 mg/dL (74-106); Lipase 25 U/L (<78); Magnesium 2.0 mg/dL (1.8-2.4); Potassium 4.0 mmol/L (3.5-5.1); Sodium 141 mmol/L (136-145); Total Protein 6.7 g/dL (6.4-8.2); Troponin I 5 ng/L (<or=51)
[2025-03-13 11:43] LABS: Glucose Negative (Negative)
[2025-03-13] MEDS: Normal Saline Flush 10 ML SYR IVP (11:47)
[2025-03-13] MEDS: Omnipaque 350 MG/ML 500 ML BTL-Imaging package IJ (11:47)
[2025-03-13] MEDS: Normal Saline - Diluent 50 ML VIAL IJ (11:47)
[2025-03-13] MEDS: Pantoprazole 40 MG VIAL IVP (11:49)
--- NOTE | 2025-03-13 12:00 | RT.EKG_ITS ---
APPROVED REPORT Exam: Resting ECG Reason for Exam: chest pain Patient Location: E HR:79 bpm ECG Measurements Heart Rate 79 AXIS FL 127 P 42 QRSd 97 QRS 71 QT 373 T 57 QTc 427 Conclusion Sinus rhythm...normal P axis, V-rate 60- 99
[2025-03-13] MEDS: Acetaminophen 325 MG TAB 650 MG PO (12:09)
[2025-03-13 12:23] LABS: Troponin I 6 ng/L (<or=51)
[2025-03-13] MEDS: Lidocaine 5% Patch 1 PATCH TP (13:24)
--- NOTE | 2025-03-13 13:30 | DI.CT_ITS ---
Exam(s) CT CHEST PE CTA EXAM: CT CHEST PE CTA CLINICAL HISTORY: R sided CP. TECHNIQUE: Imaging Protocol: Axial CT angiography was performed with multi- slice acquisition and multi-planar reconstructions as well as axial, coronal and sagittal MIP reconstructions. Computer aided detection (CAD) was utilized. CONTRAST MATERIAL: Intravenous: Omnipaque 350 Contrast volume:100 ml COMPARISON: CT CT CHEST WO from 11/04/2020 FINDINGS: Pulmonary Arteries: No evidence of filling defect to suggest pulmonary emboli. Mediastinum and Deedee: No dominant adenopathy or fluid collection. Pulmonary parenchyma: Not well evaluated due to expiratory changes. No consolidation or dominant measurable mass. Pleura: No effusion or pneumothorax. Heart: The heart is not dilated. No coronary artery calcifications are seen. Aorta: Thoracic aorta non-dilated. No dissection. Upper abdomen: No acute findings. Bones: Unremarkable for age. Tubes, Catheters, and Lines: None Soft tissues: Unremarkable. IMPRESSION: No evidence of pulmonary embolism or other acute abnormality. RADIATION DOSE DELIVERED: 98.86mGy.cm Total DLP DATA REPOSITORY: All CT scans at this facility are submitted to the National Radiology Data Registry (NRDR) Dose Index Registry (DIR) with the [employer] (ACR). RADIATION OPTIMIZATION: All CT scans at this facility use at least one of these dose optimization techniques: automated exposure control; mA and/or kV adjustment per patient size (includes targeted exams where dose is matched to clinical indication); or iterative reconstruction.
[2025-03-13 13:34] LABS: D-Dimer 2597 ng/mlFEU (<500)
[2025-03-13] MEDS: Lactated Ringers 1,000 ML 1000 ML IV (14:07)
[2025-03-13 14:31] LABS: Troponin I 6 ng/L (<or=51)
[2025-03-13] MEDS: Omnipaque 350 MG/ML 100 ML BTL IJ (14:45)
== END 2025-03-13 15:44 | disposition home or self-care (01) ==
PROVIDERS: Emergency Provider Nurse Practitioner Family; PCP Physician Assistant
DX: R11.0 Nausea; R14.0 Abdominal distension (gaseous); R07.9 Chest pain, unspecified; R10.13 Epigastric pain
CPT/HCPCS: 36415; 71275; 76705; 80053; 81025; 83690; 93005; 96361; 96374; 99285; 74177; 81003; 83735; 84484; 85025; 85379; 93010; 99284; J2470; J3490

== ENCOUNTER 2025-03-31 00:48 | Outpatient (CLI) | payer MEDICAID, SELFPAY | END 2025-03-31 00:49 | disposition home or self-care (01) | LOC: LBO 00:48 | PROVIDERS: PCP Physician Assistant; Visit Provider Physician Assistant | DX: R10.13 Epigastric pain (principal) | CPT/HCPCS: 83013 ==